=== PATIENT | female | born 1960 | race Caucasian/White ===

== ENCOUNTER 2021-08-27 13:17 | Emergency (ER) | payer BC, SELFPAY ==
[2021-08-27 13:48] VITALS: BP 134/74; PULSE 91; RESP 16; TEMP 36.7; O2SAT 99
--- NOTE | 2021-08-27 15:44 | ED.URI ---
HPI - URI/Sore Throat General Chief Complaint: Upper Respiratory Infection Stated Complaint: Sore Throat Time Seen by Provider: 08/27/21 15:44 Source: patient and RN notes reviewed Mode of arrival: ambulatory Limitations: no limitations History of Present Illness HPI Narrative: 61-year-old female with history of diabetes presents with concern for sore throat, dry cough, nasal congestion and drainage. She reports symptoms started yesterday. She was vaccinated for Covid. She denies any known sick contacts. Reports she is using throat lozenges denies other [id number] intervention. She denies fever, body aches, chills, sweats, shortness of breath,, nausea, vomiting, diarrhea. MD elicited complaint: cough and sore throat Related Data Home Medications Medication Instructions Recorded Confirmed amitriptyline 10 mg PO HS 08/27/21 08/27/21 glipizide 10 mg PO BID 08/27/21 08/27/21 levothyroxine 112 mcg PO DAILY 08/27/21 08/27/21 simvastatin 20 mg PO DAILY 08/27/21 08/27/21 tramadol 50 mg PO Q6H PRN 08/27/21 08/27/21 triamterene-hydrochlorothiazid 1 cap PO DAILY 08/27/21 08/27/21 Allergies Allergy/AdvReac Type Severity Reaction Status Date / Time No Known Allergies Allergy Verified 08/27/21 14:11 Review of Systems Review of Systems: CONSTITUTIONAL: Denies malaise, chills, sweats, or fever. EYES: Denies visual changes, redness, or discharge. ENT: Reports rhinorrhea, congestion, sore throat. Denies sinus pain, otalgia CARDIOVASCULAR: Denies chest pain, palpitations, or edema. RESPIRATORY: Reports cough. Denies dyspnea. GASTROINTESTINAL: Denies abdominal pain, nausea, vomiting, diarrhea SKIN: Denies rash or itching. MUSCULOSKELETAL: Denies myalgia. NEUROLOGIC: Denies headache. All systems reviewed & are unremarkable except as noted in HPI and below PMFSH Comments At time of signature, agree with nursing past medical, surgical, social and family history. There is no relevant family history pertinent to the presenting complaint Exam Narrative: GENERAL: Well-appearing, well-nourished, and in no acute distress. HEAD: Normocephalic EYES: PERRLA, conjunctivae clear ENT: Nares clear. Mucous membranes moist. TM pearly her with sharp light reflex bilaterally; no tragal tenderness. Oropharynx erythematous without lesions. Tonsils not enlarged and without exudate, no drooling, no hoarseness, no trismus, uvula midline. NECK: Supple. No lymphadenopathy CHEST: Clear to auscultation, breath sounds equal. No wheezing, rhonchi, rales, or stridor. No respiratory distress, speaks in full sentences. HEART: Regular rate and rhythm. No murmur heard. SKIN: Warm, dry, no rash. NEURO: Alert and oriented x3. PSYCH: Normal mood and affect Course Course Emergency Course: Patient is aware of diagnosis, understands and agrees to treatment plan. Anticipatory guidance given. Patient agrees to follow-up as directed and is aware of reasons to seek care at the emergency department. Portions of this record may have been created with voice recognition software Vital Signs Vital signs: Vital Signs Temperature 98.1 F 08/27/21 13:48 Pulse Rate 91 08/27/21 13:48 Respiratory Rate 16 08/27/21 13:48 Blood Pressure 134/74 08/27/21 13:48 Pulse Oximetry 99 08/27/21 13:48 Temperature 98.1 F 08/27/21 13:48 Pulse Rate 91 08/27/21 13:48 Respiratory Rate 16 08/27/21 13:48 Blood Pressure 134/74 08/27/21 13:48 Pulse Oximetry 99 08/27/21 13:48 Reviewed. Patient has history of hypertension MDM - URI/Sore Throat MDM Narrative Medical decision making narrative: Differential diagnosis considered: Hardin virus, strep pharyngitis, allergic rhinitis, upper respiratory tract infection, sinusitis, rhinosinusitis, nasopharyngitis. viral pharyngitis, otitis media, otitis externa, pneumonia, bronchitis, viral cough syndrome, viral syndrome, and influenza. Exam findings show no acute concerns or changes; patient is non-toxic appearing and
== END 2021-08-27 16:20 | disposition home or self-care (01) ==
PROVIDERS: Emergency Provider Nurse Practitioner; PCP Internal Medicine Infectious Disease
DX: J06.9 Acute upper respiratory infection, unspecified (principal); Z20.822 Contact with and (suspected) exposure to COVID-19; E78.00 Pure hypercholesterolemia, unspecified; E11.9 Type 2 diabetes mellitus without complications; E89.0 Postprocedural hypothyroidism; F32.A Depression, unspecified; Z85.850 Personal history of malignant neoplasm of thyroid
CPT/HCPCS: 87081; 87426; 87880; 99203; C9803; G0463

== ENCOUNTER 2024-03-25 14:18 | Emergency (ER) | payer MEDICARE, SELFPAY ==
[2024-03-25 14:30] VITALS: BP 112/67; PULSE 110; RESP 20; TEMP 36.4; O2SAT 96
[2024-03-25 14:42] VITALS: BP 112/67; PULSE 110; RESP 20; TEMP 36.4; O2SAT 96
--- NOTE | 2024-03-25 14:44 | ED.SKABFB ---
HPI - Skin/Abscess/Foreign Bdy General Chief complaint: Skin/Abscess/Foreign Body Stated complaint: Skin Sore/Right Thumb Time Seen by Provider: 03/25/24 14:40 Source: patient, RN notes reviewed and old records reviewed Mode of arrival: ambulatory Limitations: no limitations History of Present Illness HPI narrative: 64 year olf female who presents to [facility] care with complaints of soreness with open draining pustular wound to distal right thumb. Patient reports that she stated having concern for infection redness to the distal aspect of her right thumb on Wednesday and on she starting having some oozing from wound then it started yesterday draining white greenish purulent material,Patient reports that she has history of getting little white spots to the end of her finger, handles money at work.Patient reports no known fevers MD complaint: abscess/boil (right distal thumb) Onset (ago): day(s) (4) Severity scale (1-10): 7 Treatments prior to arrival: OTC topical medication and other (bandaids) Related Data Home Medications Medication Instructions Recorded Confirmed amitriptyline 10 mg tablet 10 mg PO HS 08/27/21 03/25/24 simvastatin 20 mg tablet 20 mg PO DAILY 08/27/21 03/25/24 tramadol 50 mg tablet 50 mg PO Q6H PRN Pain (Scale Score 08/27/21 03/25/24 4-6) triamterene 37.5 1 cap PO DAILY 08/27/21 03/25/24 mg-hydrochlorothiazide 25 mg capsule amlodipine 5 mg tablet 5 mg PO DAILY 03/25/24 03/25/24 glimepiride 2 mg tablet See Rx Instructions .Route .COMPLEX 03/25/24 03/25/24 levothyroxine 125 mcg tablet 125 mcg PO DAILY 03/25/24 03/25/24 metformin 500 mg tablet 500 mg PO BID 03/25/24 03/25/24 Allergies Allergy/AdvReac Type Severity Reaction Status Date / Time No Known Allergies Allergy Verified 03/25/24 14:30 Review of Systems Review of Systems: CONSTITUTIONAL: Denies fever, chills, or sweats. CARDIOVASCULAR: Denies chest pain, palpitations, or edema. RESPIRATORY: Denies cough or dyspnea. GASTROINTESTINAL: Denies abdominal pain, nausea, vomiting SKIN: Reports redness and swelling of right thumb with purulent drainage. vesicles, pain to distal right thumb MUSCULOSKELETAL: Denies myalgia. NEUROLOGIC: Denies headache, numbness All systems reviewed & are unremarkable except as noted in HPI and below PMFSH Past Medical History Medical History (Updated 03/27/24 @ 08:35 by Tila Patricia NP) Cancer of thyroid Depression Diabetes Hyperlipidemia Hypertension Hypothyroidism Surgical History Surgical History (Updated 03/27/24 @ 08:28 by Tila Patricia NP) H/O thyroidectomy H/O tubal ligation History of endometrial ablation Hx of appendectomy Hx of cholecystectomy Social History Social History (Updated 03/27/24 @ 08:29 by Tila Patricia NP) Smoking status: Never smoker Alcohol intake: current Alcohol use details: rare social Substance use: never Gender identity (if verbalized by the patient): Female Comments At time of signature, agree with nursing past medical, surgical, social and family history. There is no relevant family history pertinent to the presenting complaint Exam Narrative: GENERAL: Well-appearing, well-nourished, and in no acute distress. HEAD: Normocephalic, atraumatic. EYES: PERRLA and EOMI. ENT: Nares clear, no rhinorrhea or epistaxis. Mucous membranes moist. NECK: Supple. no lymphadenopathy CHEST: Clear to auscultation. No respiratory distress.96% on room air HEART: Regular rate and rhythm. No murmur heard. Normal peripheral pulses. ABDOMEN: Soft, nontender, nondistended, normal active bowel sounds. EXTREMITIES: Normal range of motion. No edema. SKIN: Warm, dry. Erythema, induration, tenderness, warmth with purulent drainage to abscess tip of right distal thumb measures 0,75 cm diameter. site is painful to palpation with some surrounding redness. NEURO: No focal deficits. Alert and oriented x3. Course Course Emergency Course: Patient is
== END 2024-03-25 15:05 | disposition home or self-care (01) ==
PROVIDERS: Emergency Provider Registered Nurse; PCP Internal Medicine Infectious Disease
DX: L02.511 Cutaneous abscess of right hand (principal); E89.0 Postprocedural hypothyroidism; E11.9 Type 2 diabetes mellitus without complications; Z79.84 Long term (current) use of oral hypoglycemic drugs; E78.5 Hyperlipidemia, unspecified; I10 Essential (primary) hypertension; Z85.850 Personal history of malignant neoplasm of thyroid
CPT/HCPCS: 87070; 87075; 87081; 87181; 87205; 99213; G0463

== ENCOUNTER 2025-04-06 13:40 | Emergency (ER) | payer MEDICARE, SELFPAY ==
--- OUTSIDE RECORDS SUMMARY | 2025-04-06 13:44 | XMS_ITS | Encounter Summary ---
Author Organization [facility] Healthcare Address [address] [place] [address] Care Team Providers Care Radio Division Officer Name Role Phone Donald Pate MD Primary Care Provider [phone] Encounter Details Date Type Department Care Team (Late st Contact Info) Description 10/23/2024 Orders Only [facility] [address] [place] [id number] Scanning, Provider Social History Tobacco Use Types Packs/Day Years Used Date Smoking Tobacco: Never Smokeless Tobacco: Never Alcohol Use Standard Drinks/Week Comments No 0 (1 standard drink = 0.6 oz pur e alcohol) PHQ-2 Answer Date Recorded PHQ-2 Total Score 0 05/22/2024 PHQ-9 Answer Date Recorded PHQ-9 Total Score 0 05/22/2024 Personal Safety Answer Date Recorded Have you ever been in or are you currently in a harmful physical or emotional relationship or is someone making you feel afraid or unsafe? Denies 08/16/2024 Comments Unknown Sex and Gender Information Value Date Recorded Sex Assigned at Not on file Legal Sex Female 11:58 PM [employer] Gender Identity Not on file Sexual Orientation Not on file documented as of this encounter Plan of Treatment Not on file documented as of this encounter Procedures Procedure Name Priority Date/Time Associated Diagnosis Comments SCAN - LABS 10/23/2024 documented in this encounter Results * SCAN - LABS (10/23/2024) us Provider Scanning Final Result documented in this encounter Visit Diagnoses Not on filedocumented in this encounter Care Teams Radio Division Officer Relationship Specialty Start Date End Date Donald Pate MD [address] [place] [address] PCP - General 11/27/16 documented as of this encounter
--- OUTSIDE RECORDS SUMMARY | 2025-04-06 13:44 | XMS_ITS | Clinical Summary ---
Author Organization [facility] Address [address] [place] [address] Phone Care Team Providers [employer] Name Role Phone Rio Donald Lee MD Primary Care Provider [phone]- [phone] Allergies No known active allergies Medications amitriptyline (ELAVIL) 10 MG Tablet Take 10 mg by mouth nightly. Active levothyroxine (SYNTHROID) 112 MCG Tablet Take 112 mcg by mouth daily. Active simvastatin (ZOCOR) 20 MG Tablet Take 20 mg by mouth every evening. Active SUMAtriptan (IMITREX) 100 MG Tablet Take 100 mg by mouth daily as needed. Use as directed. May repeat dose in 2 hours if headache recurs. Active sertraline (ZOLOFT) 50 MG Tablet Take 50 mg by mouth daily. Active glimepiride (AMARYL) 2 MG TabletIndicatio ns:Type 2 Diabetes Mellitus Take 2 mg by mouth 2 times daily. Indications: Type 2 Diabetes 2 Active cyclobenzaprine (FLEXERIL) 10 MG Tablet Take 10 mg by mouth nightly. 4 Active triamterene-hyd rochlorothiazid e (MAXZIDE) 37.5-25 MG Tablet Take 1 Tablet by mouth daily. Active baclofen (LIORESAL) 10 MG Tablet Take 1 Tablet by mouth every 12 hours as needed for Muscle spasms. 90 Tablet 5 Active traMADol (ULTRAM) 50 MG TabletIndicatio ns:Pain Take 1 Tablet by mouth every 6 hours as needed for Moderate or more severe pain. Indications: Pain 15 Tablet Active pantoprazole (PROTONIX) 40 MG Tablet Delayed Response Take 40 mg by mouth daily. Active bisacodyl EC (DULCOLAX) 5 MG Tablet Delayed Response Take 5 mg by mouth daily as needed for Constipation - 1st line. Active Acetaminophen 500 MG Capsule Take 1,000 mg by mouth every 4 hours as needed for Mild or more severe pain. Active predniSONE (DELTASONE) 10 MG Tablet Take 10 mg by mouth daily. PT TAKING 5MG DAILY OF 01/16/25 Active Active Problems Problem Noted Date Diagnosed Date Chronic anemia 10/16/2024 Type 2 diabetes mellitus 10/16/2024 Hypothyroidism (acquired) 10/16/2024 History of thyroid cancer 10/16/2024 Primary osteoarthritis involving multiple joints 09/27/2024 Acute anemia 09/26/2024 Iron deficiency anemia due to chronic blood loss 08/01/2024 Colitis 06/15/2024 Sepsis 06/15/2024 Complicated urinary tract infection 06/15/2024 Morbid obesity 06/15/2024 Hyponatremia 06/15/2024 Microcytic anemia 06/15/2024 Diarrhea 06/15/2024 Hypothyroidism 06/15/2024 CKD (chronic kidney disease) stage 3, GFR 30-59 ml/min 11/23/2023 Type 2 diabetes mellitus with hyperglycemia 05/30 Mixed hyperlipidemia 01/13/2014 Overview (09/27/2024): Hyperlipidemia Diabetes mellitus Hypertension Resolved Problems Problem Noted Date Diagnosed Date Resolved Date Orthostatic hypotension 10/16/202409/30 Dehydration 10/16/2024 10/17/2024 Generalized weakness 10/16/2024 025 Acute cystitis 10/02/2024 10/02/2024 Acute blood loss anemia 09/27/2024 02/0 10/2024 Dysphagia 09/27/2024 10/02/2024 Hypokalemia 06/15/2024 10/17/2024 Acute kidney injury superimp osed on stage 3a chronic kidney disease 06/15/2024 10/17/2024 Encounters Date Type Department Care Team Description 02/26/2025 [facility] [address] [address] Radha Ma, EMERGENCY SERVICE WORKER TRANSPORT 01/31/2025 10:00 AM CDT Home Care Visit [address] [address] La Rodriguez, KATLIN SN - OASIS DISCHARGE 01/29/2025 9:30 AM CDT Home Care Visit [address] [address] Areli Barahona, PT PT - DISCIPLINE DISCHARGE 01/26/2025 9:30 AM CDT Home Care Visit [address] [address] Pamela Hammer, STREET LIGHT WIRER PT - HOME VISIT 01/24/2025 9:30 AM CDT Home Care Visit [address] [address] Pamela Hammer, STREET LIGHT WIRER PT - HOME VISIT 01/24/2025 2:00 AM CDT Home Care Visit [address] [address] La Rodriguez, KATLIN SN - HOME VISIT 01/18/2025 9:30 AM CDT Home Care Visit [address] [address] Pamela Hammer, STREET LIGHT WIRER PT - HOME VISIT 01/17/2025 2:30 PM CDT Home Care Visit [address] [address] La Rodriguez, KATLIN SN - HOME VISIT 01/15/2025 10:30 AM CDT Home Care Visit [address] [address] Pamela Hammer, STREET LIGHT WIRER PT - HOME VISIT 01/11/2025 10:30 AM CDT Home Care Visit [address] [address] Pamela Hammer, STREET LIGHT WIRER PT - HOME VISIT 01/09/2025 10:30 AM CDT Home Care Visit [address] [address] La Christiansen OT OT - INITIAL EVALUATION 01/09/2025 10:00 AM CDT Home Care Visit [address] [address] Areli Barahona, PT PT - INITIAL EVALUATION 01/09/2025 Plan of Care Documentation [address] [address] 01/08/2025 11:00 AM CDT Home Care Visit [address] [address] La Rodriguez, RN SN - OASIS START OF CARE from Last 3 Months Immunizations Immunization Administration Dates Next Due Influenza, Trivalent, Adjuvanted, PF 06/16/2024 TDAP Vaccine 09/22/2023,04/23/2018 Social History Tobacco Use Types Packs/Day Years Used Date Smoking Tobacco: Never Smokeless Tobacco: Never Tobacco Cessation:Counseling Given: Not Answered Alcohol Use Standard Drinks/Week Comments No 0 (1 standard drink = 0.6 oz pur e alcohol) [facility] Utilities Answer Date Recorded In the past 12 months has [employer], gas, oil, or water [employer] threatened to shut off services in your home? Patient declined 10/16/2024 Social Connection and Isolation Panel Answer Date Recorded In a typical week, how many times do you talk on the phone with family, friends, or neighbors? Patient declined 10/16/2024 How often do you get togethe r with friends or relatives? Patient declined 10/16/2024 How often do you attend jewish or adventism serv ices? Patient declined 10/16/2024 Do you belong to any clubs o r organizations such as jewish groups, unions, fraternal or athletic groups, or school groups? Patient declined 10/16/2024 How often do you attend meet ings of the clubs or organizations you belong to? Patient declined 10/16/2024 Are you , , di vorced, , never , or living with a partner? Patient declined 10/16/2024 AUDIT-C Answer Date Recorded Q1: How often do you have a drink containing alc ohol? Patient declined 10/16/2024 Q2: How many drinks containi ng alcohol do you have on a typical day when you are drinking? Patient declined 10/16/2024 Q3: How often do you have si x or more drinks on one occasion? Patient declined 10/16/2024 Overall Financial Resource Strain (CARDIA) Answe r Date Recorded How hard is it for you to pa y for the very basics like food, housing, medical care, and heating? Patient declined 10/16/2024 [facility] Occupat ional [facility] - Occupational Stress Questionnaire Answer Date Recorded Do you feel stress - tense, restless, nervous, or anxious, or unable to sleep at night because your mind is troubled all the time - these days? Patient declined 10/16/2024 Exercise Vital Sign Answer Date Recorde d On average, how many days pe r week do you engage in moderate to strenuous exercise (like a brisk walk)? Patient declined On average, how many minutes do you engage in exercise at this level? Patient declined 10/16/2024 Hunger Vital Sign Answer Date Recorded Within the past 12 months, y ou worried that your food would run out before you got the money to buy more. Patient declined Within the past 12 months, t he food you bought just didn't last and you didn't have money to get more. Patient declined PRAPARE - Transportation Answer Date Re corded In the past 12 months, has l ack of transportation kept you from medical appointments or from getting medications? Patient declined 10/16/2024 In the past 12 months, has l ack of transportation kept you from meetings, work, or from getting things needed for daily living? Patient declined 10/16/2024 Housing Stability Vital Sign Answer Patrice e Recorded In the last 12 months, was t here a time when you were not able to pay the mortgage or rent on time? Patient declined 10/16/19 25 In the past 12 months, how m any times have you moved where you were living? 1 10/16/2024 At any time in the past 12 m [facility], were you homeless or living in a chcf (including now)? Patient declined 10/16/2024 Sexually Active Control Partners Comments Not Currently Comments No Sex and Gender Information Value Date Recorded Sex Assigned at Not on file Legal Sex Female 12:10 AM CDT Gender Identity Not on file Sexual Orientation Not on file Last Filed Vital Signs Vital Sign Reading Time Taken Comments Blood Pressure 128/68 01/31/2025 10:14 AM CDT Pulse 87 01/31/2025 10:08 AM CDT Temperature 36.4 C (97.5 F) 01/31/2025 10:08 AM CDT Respiratory Rate 16 01/31/2025 10:08 AM CDT Oxygen Saturation 98% 01/31/2025 10:08 AM CDT Inhaled Oxygen Concentration - - Weight 98 kg (216 lb) 01/31/2025 10:08 AM CDT Height 157.5 cm (5' 2) 01/31/2025 10:08 AM CDT Body Mass Index 39.51 01/31/2025 10:08 AM CDT Plan of Treatment Upcoming Encounters Date Type Department Care Team (Late st Contact Info) Description 04/10/2025 3:00 PM CDT [facility] Visit [facility] [address] [place] [address] Kimber Mojica APRN, MARKET RESEARCH SPECIALIST [address] [place] [address] Health Maintenance Due Date Last Done Comments DEXA Bone Density 1959 Diabetes: Eye Exam 1959 Diabetes: Foot Exam 1959 Hepatitis C Virus (HCV) Screening 1959 Pneumococcal Immunization (50+ years) (1 of 2 - PCV) 1978 Cologuard 01/29/2004 Zoster Immunization (1 of 2) 2009 SARS-COV-2 Immunization (3 - season) 2024 02/11/2021, 01/15/2021 Mammogram 04/27/2025 04/27/2024, 10/01, 05/27/2017 Influenza Immunization (#1) 04/30/202505/30, 07/09/2023, 06/08/2022, Additional history exists Diabetes: Hemoglobin A1c 07/15/20252 025, 10/16/2024, 09/21/2024, Additional history exists Immunochemical Fecal Occult Blood 10/01/2025 10/01/2024 Diabetes: Nephropathy Screening 10/15/2025 10/15/2024, 09/26/2024, 06/15/2024, Additional history exists Td Immunization Every 10 Years (Adults With 1 Tdap) 09/22/2033 09/22/2023, 04/23/2018, 09/27/2013 Respiratory Syncytial Virus (RSV) Immunization (Adult) (1 - 1-dose 75+ series) 2034 Colonoscopy 08/16/2034 08/16/2024 Colorectal Cancer Screening 08/16/2034 DTaP/Tdap/Td Immunization Discontinued 2023, 04/23/2018, 09/27/2013 Hepatitis B Immunization Aged Out No longer eligible based on patient's age to complete this topic Human Papillomavirus (HPV) Immunization Aged Out No longer eligible based on patient's age to complete this topic Meningococcal Immunization (ACWY) Aged Out No longer eligible based on patient's age to complete this topic Rotavirus Immunization Aged Out No lo nger eligible based on patient's age to complete this topic Procedures Procedure Name Priority Date/Time Associated Diagnosis Comments HEMOGLOBIN A1C W/ ESTIMATED GLUCOSE STAT 10/16/2024 4:54 AM [employer] CMP (COMPREHENSIVE METABOLIC PANEL) STAT 10/15/2024 7:35 PM [employer] STOOL, OCCULT BLOOD, DIAGNOSTIC, VIA GUAIAC Routine 10/01/2024 2:26 PM [employer] from Last 3 Months or Most Recently Relevant to Health Maintenance Results * Hemoglobin A1C w/ Estimated Glucose (10/16/2024 4:54 AM [employer]) HGB-A1C 6.0 4.0 - 6.0 % 10/16/2024 5:31 AM [employer] [facility] Est Average Glucose 125.5 mg/dL 10/16/2024 5:31 AM [employer] [facility] Blood Venipuncture / Unknown 10/16/2024 4:54 AM [employer] 10/16/2024 5:03 AM [employer] Narrative [facility] - 10/16/2024 5:31 AM [employer] HEMOGLOBIN A1C: DIABETIC PATIENTS: WELL-CONTROLLED: 6.2 - 7.0 INTERMEDIATE WELL-CONTROLLED: 7.0 - 9.0 POORLY-CONTROLLED: >9.0 Specimens containing greater than 5% of Hemoglobin F may result in lower than expected % HbA1C results. Paige Morris ENGINE GENERATOR ASSEMBLER, MARKET RESEARCH SPECIALIST CHEMISTRY ORDERABLES Final Result [facility] [address] [place] [address] * (ABNORMAL) CMP (Comprehensive Metabolic Panel) (10/15/2024 7:35 PM [employer]) SODIUM 140 136 - 145 mmol/L 10/15/2024 8:09 PM [facility] POTASSIUM 3.4(L) 3.5 - 5.1 mmol/L 10/15/2024 8:09 PM [facility] CHLORIDE 107 98 - 107 mmol/L 10/15/2024 8:09 PM [facility] CO2, VENOUS 19(L) 22 - 30 mmol/L 10/15/2024 8:09 PM [facility] ANION GAP 17.4 <18.0 mmol/L 10/15/2024 8:09 PM [facility] GLUCOSE 139(H) 70 - 99 mg/dL 10/15/2024 8:09 PM [facility] BUN 51(H) 10 - 20 mg/dL 10/15/2024 8:09 PM [facility] CREATININE, BLOOD 2.38(H) 0.60 - 1.00 mg/dL 10/15/2024 8:09 PM [facility] BUN/CREATININE RATIO 21(H) 12 - 20 ratio 10/15/2024 8:09 PM [facility] TOTAL PROTEIN 7.9 6.0 - 8.0 g/dL 10/15/2024 8:09 PM [facility] ALBUMIN 3.8 3.5 - 5.0 g/dL 10/15/2024 8:09 PM [facility] A/G RATIO 0.9(L) 1.0 - 2.2 10/15/2024 8:09 PM [facility] CALCIUM 10.5 8.7 - 10.5 mg/dL 10/15/2024 8:09 PM [facility] T BILI 0.4 0.2 - 1.2 mg/dL 10/15/2024 8:09 PM [facility] SGOT (AST) 24 6 - 42 U/L 10/15/2024 8:09 PM [facility] SGPT (ALT) 16 6 - 55 U/L 10/15/2024 8:09 PM [facility] ALKALINE PHOSPHATASE 125 40 - 150 U/L 10/15/2024 8:09 PM [facility] GFR, ESTIMATED 22(L) >=60 10/15/2024 8:09 PM [facility] Comment: Creatinine Clearance is the preferred criteria for selecting drug dose adjustments in renally impaired patients. The GFR is provided as additional pertinent clinical information. GFR is reported in mL/min/1.73 sq m. Calculation based on the Chronic Kidney Disease Epidemiology Collaboration (CKD- EPI) equation refit without adjustment for race. GFR, EST. 25(L) >=60 025 8:09 PM [facility] GFR, EST. NONAFRICAN 20(L) >=60 10/15/2024 8:09 PM [facility] Blood Venipuncture / Unknown 10/15/2024 7:35 PM [employer] 10/15/2024 7:44 PM [employer] us Perry Jacobs MD CHEMISTRY ORDERABLES Alisia l Result [facility] [address] [place] [address] * (ABNORMAL) Stool, Occult Blood, Diagnostic, via Guaiac (10/01/2024 2:26 PM [employer]) OCCULT BLOOD DIAG Positive(A ) Negative 10/01/2024 4:43 PM [employer] [facility] Stool STOOL SPECIMEN / Unknown Non-Phlebotomy Collection / Unknown 10/01/2024 2:26 PM [employer] 10/01/2024 2:26 PM [employer] us Kellie Alvarado APRN, MARKET RESEARCH SPECIALIST BODY FLUIDS & STOOLS LAITH MYRICK Final Result [facility] [address] [place] [address] from Last 3 Months or Most Recently Relevant to Health Maintenance Insurance MEDICARE [facility] Advance Directives * Full Code (Latest Code Status on File) Date Activated Date Inactivated Comments 01/10/2025 6:42 AM * Full Code Date Activated Date Inactivated Comments 10/16/2024 12:35 AM 01/10/2025 6:42 AM CPR-Full Tr eatment: FULL ARREST: Attempt Resuscitation/CPR wit intubation and mechanical ventilation. PRE-ARREST: Use entire range of life support measures to stabilize the patient. * Full Code Date Activated Date Inactivated Comments 09/26/2024 2:05 PM 10/16/2024 12:35 AM CPR-Full Tr eatment: FULL ARREST: Attempt Resuscitation/CPR wit intubation and mechanical ventilation. PRE-ARREST: Use entire range of life support measures to stabilize the patient. * Full Code Date Activated Date Inactivated Comments 06/15/2024 1:45 PM 09/26/2024 2:05 PM CPR-Full Tr eatment: FULL ARREST: Attempt Resuscitation/CPR wit intubation and mechanical ventilation. PRE-ARREST: Use entire range of life support measures to stabilize the patient. Healthcare Agents on File Name Relationship Healthcare Agent Relationship Communication Ian Summers Son/Step-Son Healthcare POA Rosio summers Daughter/Step-Daughter [facility] ernate Healthcare POA Care Teams [employer] Relationship Specialty Start Date End Date Donald Pate MD [employer] [id number] PCP - General Internal Medicine 02/04/18
--- OUTSIDE RECORDS SUMMARY | 2025-04-06 13:44 | XMS_ITS | Clinical Summary ---
Author Organization [facility] Address [address] [place] [address] Care Team Providers Care Belt Conveyor Drier Name Role Phone Donald Holden MD Primary Care Provider [phone] Allergies No known active allergies Medications blood glucose diagnostic (TruliaTouch Ultra Test) strip Use to check blood sugar bid 200 strip 2 07/10/20 21 Active pen needle, diabetic 32 gauge x 5/32 needle Use to inject insulin daily e11.65 100 each 3 11/23/19 24 Active potassium chloride ER 20 mEq CR tablet Take 1 tablet (20 mEq total) by mouth daily Active levothyroxine (SYNTHROID) 125 mcg tablet TAKE 1 TABLET(125 MCG) BY MOUTH DAILY 90 tablet 1 09/02/19 25 Active triamterene-hydro CHLOROthiazide 37.5-25 mg per tablet/capsule TAKE 1 TABLET BY MOUTH EVERY DAY 90 tablet 2 09/02/19 25 Active sertraline (ZOLOFT) 50 mg tablet Take 1 tablet (50 mg total) by mouth daily Active diclofenac sodium (VOLTAREN) 1 % gel Apply topically Active acetaminophen (TYLENOL) 500 mg tablet Take 1 tablet (500 mg total) by mouth every 6 (six) hours as needed for pain Active bisacodyL 5 mg tablet Take by mouth Active simvastatin (ZOCOR) 20 mg tablet TAKE 1 TABLET(20 MG) BY MOUTH EVERY NIGHT 90 tablet 01/15/20 25 Active blood-glucose meter kitIndications:Ty pe 2 diabetes mellitus with stage 3b chronic kidney disease, without long-term current use of insulin (HCC) Use to check blood sugar every day DX:E11.22 1 kit 01/17/20 25 Active lancets miscIndications:T ype 2 diabetes mellitus with stage 3b chronic kidney disease, without long-term current use of insulin ([facility]) Use to check blood sugar every day DX:E11.22 100 each 3 01/17/20 25 Active predniSONE (DELTASONE) 5 mg tablet Take 1 tablet (5 mg) by mouth daily 30 tablet 5 01/17/20 25 025 Active traMADoL (ULTRAM) 50 mg tabletIndications :Primary osteoarthritis involving multiple joints Take 1 tablet (50 mg total) by mouth 2 (two) times a day as needed for pain 60 tablet 02/11/[address] (PROTONIX) 40 mg EC tabletIndications :Upper GI bleed Take 1 tablet (40 mg total) by mouth daily 90 tablet 1 02/13/20 25 Active glimepiride (AMARYL) 2 mg tabletIndications :Type 2 diabetes mellitus with hyperglycemia, without long-term current use of insulin ([facility]) TAKE 1 TABLET(2 MG) BY MOUTH TWICE DAILY 180 tablet 03/29/20 25 Active glimepiride (AMARYL) 2 mg tabletIndications :Type 2 diabetes mellitus with hyperglycemia, without long-term current use of insulin ([facility]) TAKE 1 TABLET(2 MG) BY MOUTH TWICE DAILY 180 tablet 09/02/19 25 025 Discontinued Active Problems Problem Noted Date Diagnosed Date PMR (polymyalgia rheumatica) 11/03/2024 Assessment & Plan (11/03/2024 1:01 PM OFFICE HELPER): WITH SHOULDER AND PELVIC GIRDLE PAIN WITH EXCEPTIONALLY HIGH CRP PREDNSINE 60 MGP OQDAY FOR THREE DAYS/ 40 MG P OQDAY FOR THREE DAYS / 20 MG PO QDAY FOR 3 DAYS THEN 10 MG P OQDAY FOR THREE DAYS Upper GI bleed 10/04/2024 Assessment & Plan (10/11/2024 2:32 PM OFFICE HELPER): STABLE S/P EGD LAST CBC HB WAS 9 Assessment & Plan (10/04/2024 2:38 PM OFFICE HELPER): DUE TO OTC NSAIDS ON PRTONIX 40 MG PO QAM ESOPHAGITIS FUNGAL INFECTION ON NYSTATION PO QID LAST HB AT 8.8 Otalgia of both ears 09/14/2024 Assessment & Plan (09/14/2024 12:30 PM OFFICE HELPER): B/L WEBERS AND RINNES TEST NEG Z PK ASTELIN NASAL SPRAY BID Family history of colon cancer in father 024 History of colonic polyps 08/01/2024 Iron deficiency anemia due to chronic blood loss 08/01/2024 Assessment & Plan (11/03/2024 1:00 PM OFFICE HELPER): Pt is at a rehab facility right now . Last hb was around 8 Colonscopy is on hold at this time Cbc in two week Assessment & Plan (09/26/2024 11:01 AM OFFICE HELPER): HB IS AROUND 7.1 CONSISTENTLY DROPPING COLONSCOPY WQAS NOT DONE IN JUL 2024 DUE TO BOWEL PREP ISSUES REFER TO THE ER TODAY DUE TO LOW BP AND FATIGUE AND A RPT CBC / WITH POSSIBLER EGD AND COLONSCOPY Encounter for screening colonoscopy 08/01/2024 UTI due to Klebsiella species 07/20/2024 Assessment & Plan (07/20/2024 6:49 PM OFFICE HELPER): SECONDARILY TO URINE INCONTINENCE ARRANGE UA C/S TODAY DISCUSSED PEROSNAL HYGIENE WITH THE USE OF BABY WIPES Colitis 07/20/2024 Assessment & Plan (07/20/2024 6:49 PM OFFICE HELPER): WITH MILD ANEMIA AND A NEG CT SCAN ARRANGE CBC TODAY IF ANEMIC WILL REFER FOR COLONSCOPY Rash and nonspecific skin eruption 07/20/2024 Assessment & Plan (07/20/2024 6:48 PM OFFICE HELPER): B/L UNDER BREAST C/W MING DUE TO RECENT EXPOSURE TO ABX TRIAL OF TOPICAL NYSTATIN CREAM BID Functional diarrhea 06/14/2024 Assessment & Plan (06/14/2024 9:52 AM CDT): There are no alarming symptoms like nausea/ votming/ fever or bloody stool Clear liquid diet for 12 hours Ok to do zofran prn Left hip pain 05/23/2024 Assessment & Plan (05/23/2024 6:34 PM CDT): Exam is unremarkable I do not think the pain is from the hip X ray of the left Hip Chronic left-sided low back pain with left-sided sciatica 05/23/2024 Assessment & Plan (06/14/2024 9:53 AM CDT): Ok to use prn tramadol She was asking for a steroid shot today but will defer till diarrhea is better Assessment & Plan (05/23/2024 6:36 PM CDT): I think her symtpoms are actually lower back symptoms Will get an x ray of the L spine and give her kenalog 40 mg IM tines one in the left hip today after verbal consent Paronychia of left thumb 04/05/2024 Assessment & Plan (04/05/2024 4:46 PM CDT): CONDITION IS IMPROVING BUT NOT 100 PERCENT THERE IS STILL SOME SWELLING AND ERYTHEMA WILL CONTINUE KEFLEX VFOR AN ADDITIONAL FIVE DAYS KEEP AREA CLEAN AND DRY Acute non-recurrent pansinusitis 01/18/2024 Assessment & Plan (01/18/2024 4:09 PM CDT): URI symptoms for 4 days, tested negative for COVID and FLU in office today. Frontal and maxillary tenderness with yellow/green sputum blown into tissue in office today. No other acute findings on exam, afebrile, vital stable. Will rx augmentin and flonase as instructed. Push fluids. Work note provided, copy in chart. Call if symptoms do not resolve with augmentin dosing. Degenerative joint disease involving multiple chelle ints 01/18/2024 Assessment & Plan (09/26/2024 11:00 AM OFFICE HELPER): ESPECIALLY OF THE HIP GIRDLE AND B/L SHOULDER PAIN PMR IS SUSPECTED DUE GTO THE SYTMPOMS Assessment & Plan (01/18/2024 4:07 PM CDT): Worsening arthritic symptoms to both hands as described above. Generalized arthritic changes to multiple joint of both hands. No marked weakness or sensory changes. Advised Tylenol and /or aleve as instructed. Bracing may help also. Heat/ice as tolerated. CKD (chronic kidney disease) stage 3, GFR 30-59 ml/min 11/23/2023 Assessment & Plan (09/26/2024 11:00 AM OFFICE HELPER): WITH ASN E GFR UNDER 60 AT THIS TIME AVOID ALL NEPHROTOXIC MEDS Morbid obesity with BMI of 40.0-44.9, adult 05/30 Assessment & Plan (10/17/2024 10:59 AM OFFICE HELPER): With multiple co morbidities including 1. Dm type 2 essential HTN 3. Mixed hyperlipimdeia Dietary counselling today Undergoing PT for mobility and gait balance Assessment & Plan (10/11/2024 2:31 PM OFFICE HELPER): LEVEL 3 OBESITY DIETARY COUNSELLING INCREASE ACTIVITY Assessment & Plan (06/14/2024 9:53 AM CDT): Chronic and stable With co morbidities including high chol/ lower back pain Assessment & Plan (05/23/2024 6:35 PM CDT): Chronic and stable With multiple co morbidities Assessment & Plan (11/23/2023 10:45 AM CDT): This is a chronic condition which is slightly improved 3 lb weight loss since last office visit Encouraged healthy eating and exercise Assessment & Plan (06/15/2023 10:55 AM CDT): This is a chronic condition which continues 3 lb weight loss since last office visit Unable to use GLP wants due to call Encouraged healthy eating and exercise Type 2 diabetes mellitus with hyperglycemia 05/30 Assessment & Plan (11/23/2023 1:42 PM CDT): This is a chronic condition which is poorly controlled, worsening, not at goal of less than 7%. Personally reviewed most recent A1c - Lab Results Component Value Date HGBA1C 8.6 (H) 11/16/2023 Personally reviewed POC blood sugar- not at goal 80-180 Lab Results Component Value Date POCGLU 191 11/23/2023 Medication- continue glimeperide 2 mg 2x daily, stop metformin 500mg bid. Start glargine 22 units daily. Monitor blood sugar 2 times a day. Encouraged annual eye exam. Monofilament foot exam completed. protective senses intact Personally reviewed CMP eGFR- 33 Kidney function- abnormal Urine microalbumin/creatinine ratio - needed. goal <30 not treated with amlodipine, triamterene/hydrochlorothiazide B/P today- at goal of <140/90. continue amlodipine, triamterene/hydrochlorothiazide Personally reviewed lipid panel. Not at Goal of less than 70. Continue simvastatin Assessment & Plan (06/15/2023 10:52 AM CDT): This is a chronic condition which is inadequately controlled, worsening not at goal of less than 7%. Personally reviewed most recent A1c - Lab Results Component Value Date HGBA1C 8.1 06/15/2023 Personally reviewed POC blood sugar- not at goal 80-180 Lab Results Component Value Date POCGLU 198 06/15/2023 Medication- continue glimeperide 2 mg 2x daily. Start metformin 500mg bid. Asked to start 500mg in am and then add 500mg in pm. Repeat cmp at [facility]. As per up to date. Retrieved 06/15/2023 eGFR 30 to 45 mL/minute/1.73 m2: Initiation of therapy: Use generally not recommended (Ref); however, initial therapy with 500 mg once daily with the evening meal titrated to 500 mg twice daily, if tolerated, with close monitoring of kidney function has been recommended by some experts (Ref). Continuation of existing therapy: May continue at a reduced dose up to a maximum of 500 mg twice daily with close monitoring of kidney function (Ref). Monitor blood sugar daily Encouraged annual eye exam. Monofilament foot exam completed. protective senses intact Personally reviewed CMP eGFR- 36 Kidney function-abnormal Urine microalbumin/creatinine ratio - not at goal <30 treated with amlodipine, triamterene/hydrochlorothiazide. Not on Mt or Arb B/P today- not at goal of <140/90. continue amlodipine, triamterene/hydrochlorothiazide. Personally reviewed lipid panel. Not at Goal of less than 70. Continue simvastatin Assessment & Plan (02/12/2023 10:46 AM CDT): This is a chronic condition which is inadequately controlled not at goal of less than 7% with egfr of 33. Elevated BuN and creatinine. Personally reviewed most recent A1c - Lab Results Component Value Date HGBA1C 7.8 02/12/2023 Personally reviewed POC blood sugar- not at goal 80-180 Lab Results Component Value Date POCGLU 198 02/12/2023 Medication- Continue glimeperide 2mg dailly and start levemir 15 units daily. Discussed the effect of kidney failure on taking oral diabetes medications. With the presence of her high deductible co-pay, this limits her choices. Will start low- dose insulin as it is kidney friendly and cost effective. Monitor blood sugar 2 times a day. Encouraged annual eye exam. Monofilament foot exam completed. protective senses intact Personally reviewed CMP eGFR- 33 Kidney function- abnormal Urine microalbumin/creatinine ratio - at goal <30 treated with Triamterene/hydrochlorothiazide, amlodipine B/P today- at goal of <140/90. continue Triamterene/hydrochlorothiazide, amlodipine Personally reviewed lipid panel. Not at Goal of less than 70. Continue simvastatin Assessment & Plan (11/12/2022 7:43 PM CDT): This is a chronic condition which is improving but not at goal of less than 7%. Personally reviewed most recent A1c - Lab Results Component Value Date HGBA1C 7.9 (H) 10/19/2022 Personally reviewed POC blood sugar- not at goal 80-180 Lab Results Component Value Date POCGLU 260 11/12/2022 Medication- Continue glimeperide 2mg twice a day. Discussed adding medication. Not a candidate for metformin due to kidney function. Has high deductible co=pay. Wants to try to lifestyle changes. Monitor blood sugar 2 times a day. EncourageMonofilament foot exam completed, protective senses intact Urine microalbumin/creatinine ratio - at goal <30 not treated with MT/ARB on triameterene/HCTZ and amlodipine Creatinine, ur 20 - 275 mg/dL 163 Microalbumin, ur See Note: mg/dL 2.0 Microalbumin/creat ratio <30 mcg/mg creat 12 Personally reviewed BUN, creatinine, GFR-30 Kidney function- abnormal . stage 3b kidney failure. B/P today- at goal. Goal is <140/90 continue on triameterene/HCTZ and amlodipine Personally reviewed lipid panel. LDL-107 continue simvastatin Not at Goal of less than 70. Type 2 diabetes mellitus wit h stage 3b chronic kidney disease, without long-term current use of insulin 06/15/2022 Assessment & Plan (01/16/2025 5:24 PM CDT): EYE EXAM IS NL FOOT EXAM IS NL CREATININE IS BETTER WITH E GFR ABOVE 40 Assessment & Plan (11/03/2024 12:59 PM OFFICE HELPER): GOAL HBAIC IS UNDER 7 PERCENT EGFR UNDER 60 BUT ABOVE 40 ON TRIAmeterene for water retension Assessment & Plan (10/04/2024 2:38 PM OFFICE HELPER): HOLD METOFRMIN CHECK FS BID GOAL HBAIC IS UNDER 7 PERCENT Assessment & Plan (03/29/2024 6:38 PM CDT): Dilated eye exam is nl Skin assessemnet today Hbaic today She is being followed by endocrinology Assessment & Plan (11/23/2023 1:42 PM CDT): 11/16/23 00:00 SCRIBED eGFR in NonAfrican Moroccan 33 (E) SCRIBED eGFR in 33 (E) Stop metformin. Start lantus 22 units daily. Poor kidney function, refusing insulin. Assessment & Plan (06/15/2023 10:53 AM CDT): High co-pay is deteriorating medical regimen. We tried to add insulin at our last appointment however she says this too was too expensive. Medication- continue glimeperide 2 mg 2x daily. Start metformin 500mg bid. Asked to start 500mg in am and then add 500mg in pm. Repeat cmp at [facility]. As per up to date. Retrieved 06/15/2023 eGFR 30 to 45 mL/minute/1.73 m2: Initiation of therapy: Use generally not recommended (Ref); however, initial therapy with 500 mg once daily with the evening meal titrated to 500 mg twice daily, if tolerated, with close monitoring of kidney function has been recommended by some experts (Ref). Continuation of existing therapy: May continue at a reduced dose up to a maximum of 500 mg twice daily with close monitoring of kidney function (Ref). Assessment & Plan (02/12/2023 10:46 AM CDT): This is a chronic condition which is inadequately controlled not at goal of less than 7% with egfr of 33. Elevated BuN and creatinine. Personally reviewed most recent A1c - Lab Results Component Value Date HGBA1C 7.8 02/12/2023 Personally reviewed POC blood sugar- not at goal 80-180 Lab Results Component Value Date POCGLU 198 02/12/2023 Medication- Continue glimeperide 2mg dailly and start levemir 15 units daily. Discussed the effect of kidney failure on taking oral diabetes medications. With the presence of her high deductible co-pay, this limits her choices. Will start low- dose insulin as it is kidney friendly and cost effective. Monitor blood sugar 2 times a day. Encouraged annual eye exam. Monofilament foot exam completed. protective senses intact Personally reviewed CMP eGFR- 33 Kidney function- abnormal Urine microalbumin/creatinine ratio - at goal <30 treated with Triamterene/hydrochlorothiazide, amlodipine B/P today- at goal of <140/90. continue Triamterene/hydrochlorothiazide, amlodipine Personally reviewed lipid panel. Not at Goal of less than 70. Continue simvastatin Assessment & Plan (11/12/2022 7:43 PM CDT): This is a chronic condition which is improving but not at goal of less than 7%. Personally reviewed most recent A1c - Lab Results Component Value Date HGBA1C 7.9 (H) 10/19/2022 Personally reviewed POC blood sugar- not at goal 80-180 Lab Results Component Value Date POCGLU 260 11/12/2022 Medication- Continue glimeperide 2mg twice a day. Discussed adding medication. Not a candidate for metformin due to kidney function. Has high deductible co=pay. Wants to try to lifestyle changes. Monitor blood sugar 2 times a day. EncourageMonofilament foot exam completed, protective senses intact Urine microalbumin/creatinine ratio - at goal <30 not treated with MT/ARB on triameterene/HCTZ and amlodipine Creatinine, ur 20 - 275 mg/dL 163 Microalbumin, ur See Note: mg/dL 2.0 Microalbumin/creat ratio <30 mcg/mg creat 12 Personally reviewed BUN, creatinine, GFR-30 Kidney function- abnormal . stage 3b kidney failure. B/P today- at goal. Goal is <140/90 continue on triameterene/HCTZ and amlodipine Personally reviewed lipid panel. LDL-107 continue simvastatin Not at Goal of less than 70. Olecranon bursitis of right elbow 03/26/2021 Assessment & Plan (03/26/2021 3:20 PM CDT): Pt was seen in ER yesterday. She was started on bactrim and keflex, and given tramadol for pain. Pt is keeping it elevated at home and she has been icing it. She states that the tramadol doesn't help the pain. It is still both red and swollen today on examination with decreased ROM and tenderness. I will an medrol dose tim to help with inflammation. I have asked her to keep an eye on her blood sugars. Pt states that her BS this am was 102, and she does pay close attention, and will call if they get above 200. She is to be off of work until Wednesdaymarch 30. Routine physical examination 05/25/2017 Acquired hypothyroidism 05/25/2017 Assessment & Plan (03/29/2024 6:38 PM CDT): Tsh is nl Continue synthroid Tsh today Assessment & Plan (06/15/2023 10:55 AM CDT): This is a chronic condition which is not at goal of TSH between 0.3 to 4.2 mclUnits/ml Personally reviewed lab. Lab Results Component Value Date TSH 0.25 (L) 03/08/2023 TSH 1.17 10/19/2022 TSH 2.81 06/08/2022 Continue Levothryoxine 0.125 mcg po daily in am Discussed the importance of taking Levothryoxine on a empty stomach, which means one hour before eating or two hours after eating. Discussed food in the stomach will interfere with absorption of Levothyroxine. Discussed Calcium, antacids and iron supplements will interfere with the absorption of Levothyroxine, encouraged to take these at a different time of the day. Repeat TSH, T4 Migraine without aura, not intractable 7 Essential hypertension 01/13/2014 Overview (12/04/2016): Hypertension Assessment & Plan (06/14/2024 9:53 AM CDT): Goal bp is 130/80 or under Assessment & Plan (03/29/2024 6:37 PM CDT): Goal bp is 130/80 or under Assessment & Plan (01/18/2024 4:07 PM CDT): Chronic, at goal. BP stable in office today on current therapy. No acute findings on exam. Continue Maxide and amlodipine as rxd and low salt diet. Assessment & Plan (04/09/2022 3:52 PM CDT): This is a chronic condition which is at goal. B/P today- at goal. Goal is <140/90 continue on triameterene/HCTZ and amlodipine Mixed hyperlipidemia 01/13/2014 Overview (12/04/2016): Hyperlipidemia Assessment & Plan (11/03/2024 12:59 PM OFFICE HELPER): Flp and ldl is ok Goal ldl is under 100 On zocor 20 mg p oqday Assessment & Plan (03/29/2024 6:37 PM CDT): Flp and ldl are nl Goal ldl is under 100 Assessment & Plan (11/23/2023 10:45 AM CDT): This is a chronic condition which is not at goal of LDL less than 70 Continue simvastatin Encouraged to eat healthy, include fresh fruits and vegetables daily and avoid eating fried foods more than once per week. Encouraged to take medications as prescribed. Assessment & Plan (04/09/2022 3:52 PM CDT): This is a chronic condition which is not at goal. Goal is less than 70. Personally reviewed lipid panel. Continue on simvastatin. Lab Results Component Value Date LDLCALC 135 08/27/2017 Encouraged to eat healthy, include fresh fruits and vegetables daily and avoid eating fried foods more than once per week. Encouraged to take medications as prescribed. Assessment & Plan (03/19/2022 8:33 PM CDT): This is a chronic condition which is not at goal. Goal is less than 70. Personally reviewed lipid panel. Continue on simvastatin. Lab Results Component Value Date LDLCALC 135 08/27/2017 Encouraged to eat healthy, include fresh fruits and vegetables daily and avoid eating fried foods more than once per week. Encouraged to take medications as prescribed. Hyperprolactinemia 01/13/2014 Overview (12/04/2016): Hyperprolactinemia Assessment & Plan (11/03/2024 1:01 PM OFFICE HELPER): With decreased activity Including UE weakness and LE weakness Arrange MRI OF THE HEAD WITHOUT CONTRAST ARRANGE MRI OF THE C SPINE TO R/O CERVICAL RADICULOPATHY Assessment & Plan (02/12/2023 10:40 AM CDT): Latest Reference Range & Units 10/19/22 09:43 Prolactin ng/mL 43.5 (H) (H): Data is abnormally high Possible causes- medication, kidney failure. Latest Reference Range & Units 10/19/22 09:43 BUN 7 - 25 mg/dL 31 (H) Creatinine 0.50 - 1.05 mg/dL 1.72 (H) Glucose 65 - 99 mg/dL 172 (H) Calcium 8.6 - 10.4 mg/dL 9.4 Bilirubin, total 0.2 - 1.2 mg/dL 0.5 Protein, sr 6.1 - 8.1 g/dL 7.2 Albumin 3.6 - 5.1 g/dL 4.2 Estimated Glomerular Filtration Rate > OR = 60 mL/min/1.73m2 33 (L) (H): Data is abnormally high (L): Data is abnormally low 08/27/2017 MRI BRAIN W WO CONTRAST COMPARISON: Brain CT 08/27/2017. FINDINGS: There is no acute intracranial hemorrhage, midline shift or mass effect. There is no focal diffusion restriction to suggest an acute infarct. There are a few small foci of increased signal on T2 and FLAIR involving periventricular and subcortical white matter compatible small vessel microvascular ischemic disease. There is no abnormal brain enhancement. IMPRESSION: 1. NO ACUTE INTRACRANIAL BLEED OR INFARCT. 2. MINOR SMALL VESSEL MICROVASCULAR ISCHEMIC DISEASE. Electronically signed by: Royce Reyes M.D. Repeat prolactin level was ordered however patient did not obtain these labs. Encouraged her to repeat labs. Assessment & Plan (11/12/2022 7:37 PM CDT): Latest Reference Range & Units 10/19/22 09:43 Prolactin ng/mL 43.5 (H) (H): Data is abnormally high Possible causes- medication, kidney failure. Latest Reference Range & Units 10/19/22 09:43 BUN 7 - 25 mg/dL 31 (H) Creatinine 0.50 - 1.05 mg/dL 1.72 (H) Glucose 65 - 99 mg/dL 172 (H) Calcium 8.6 - 10.4 mg/dL 9.4 Bilirubin, total 0.2 - 1.2 mg/dL 0.5 Protein, sr 6.1 - 8.1 g/dL 7.2 Albumin 3.6 - 5.1 g/dL 4.2 Estimated Glomerular Filtration Rate > OR = 60 mL/min/1.73m2 33 (L) (H): Data is abnormally high (L): Data is abnormally low 08/27/2017 MRI BRAIN W WO CONTRAST COMPARISON: Brain CT 08/27/2017. FINDINGS: There is no acute intracranial hemorrhage, midline shift or mass effect. There is no focal diffusion restriction to suggest an acute infarct. There are a few small foci of increased signal on T2 and FLAIR involving periventricular and subcortical white matter compatible small vessel microvascular ischemic disease. There is no abnormal brain enhancement. IMPRESSION: 1. NO ACUTE INTRACRANIAL BLEED OR INFARCT. 2. MINOR SMALL VESSEL MICROVASCULAR ISCHEMIC DISEASE. Electronically signed by: Royce Reyes M.D. Will monitor. Resolved Problems Problem Noted Date Diagnosed Date Resolved Date Type 2 diabetes mellitus wit hout complication, without long-term current use of insulin ([facility]) 01/13/2014 11/12/2022 Overview (12/02/2016): Diet-controlled type 2 diabetes mellitus Assessment & Plan (04/09/2022 3:51 PM CDT): This is a chronic condition which is not at goal. Social deterrents include high copay deductible. Will apply for [employer] patient assistance program. Forms provided [employer] for co pay card. Will try this at pharmacy and notify the office if this does not work. Personally reviewed most recent A1c - Lab Results Component Value Date HGBA1C 8.9 (H) 02/12/2022 goal less than 7% Personally reviewed blood sugar- POC- 183 today Lab Results Component Value Date GLUCOSE 150 (H) 02/12/2022 not at goal 80-180 Medication- Continue glimperide 2mg daily. Start ozempic 0.25mg weekly. Monitor blood sugar 2 times a day. Encouraged annual eye exam. Monofilament foot exam completed, protective senses intact Urine microalbumin/creatinine ratio - Creatinine, ur 20 - 275 mg/dL 163 Microalbumin, ur See Note: mg/dL 2.0 Microalbumin/creat ratio <30 mcg/mg creat 12 at goal <30 not treated with MT/ARB on triameterene/HCTZ and amlodipine Personally reviewed BUN, creatinine, GFR-30 Kidney function- abnormal . Extensive description of stage 3b kidney failure. B/P today- at goal. Goal is <140/90 continue on triameterene/HCTZ and amlodipine Personally reviewed lipid panel. LDL-135 continue simvastatin Not at Goal of less than 70. Assessment & Plan (03/19/2022 8:32 PM CDT): This is a chronic condition which is worsening. not at goal. Personally reviewed most recent A1c - Lab Results Component Value Date HGBA1C 8.9 (H) 02/12/2022 goal less than 7% Personally reviewed blood sugar- Lab Results Component Value Date GLUCOSE 150 (H) 02/12/2022 not at goal 80-180 Medication- Continue glimperide 2mg daily. Start ozempic 0.25mg weekly. Monitor blood sugar 2 times a day. Encouraged annual eye exam. Monofilament foot exam completed, protective senses intact Urine microalbumin/creatinine ratio - Creatinine, ur 20 - 275 mg/dL 163 Microalbumin, ur See Note: mg/dL 2.0 Microalbumin/creat ratio <30 mcg/mg creat 12 at goal <30 not treated with MT/ARB on triameterene/HCTZ and amlodipine Personally reviewed BUN, creatinine, GFR-30 Kidney function- abnormal . Extensive description of stage 3b kidney failure. B/P today- at goal. Goal is <140/90 continue on triameterene/HCTZ and amlodipine Personally reviewed lipid panel. LDL-135 continue simvastatin Not at Goal of less than 70. Encounters Date Type Department Care Team Description 04/05/2025 Telephone [facility] [address] [place] [address] Donald Holden MD 03/27/2025 11:20 AM CDT Lab [facility] [address] [place] [address] Upper GI bleed; Iron deficiency anemia due to chronic blood loss; Diarrhea, unspecified type 03/08/2025 Telephone [facility] [address] [place] [address] Donald Holden MD Lab Results 03/08/2025 Orders Only [address] [address] Donald Holden MD 03/05/2025 2:40 PM CDT Lab [facility] [address] [place] [address] Upper GI bleed; Iron deficiency anemia due to chronic blood loss 03/01/2025 Orders Only [facility] [address] [place] [address] Donald Holden MD Upper GI bleed (Primary Dx) 02/28/2025 Telephone [facility] [address] [place] [address] Donald Holden MD Lab Results 02/28/2025 Results Follow-Up [facility] [address] [place] [address] Donald Holden MD Iron profile w/ IBC, CBC with auto differential, Differential, auto 02/27/2025 12:10 PM CDT Lab [facility] [address] [place] [address] Iron deficiency anemia due to chronic blood loss 02/13/2025 10:30 AM CDT Infusion [address] [place] [address] Iron deficiency anemia due to chronic blood loss (Primary Dx) 02/12/2025 Telephone [facility] [address] [place] [address] Donald Holden MD Med Refill 02/09/2025 10:00 AM CDT Infusion [address] [place] [address] Iron deficiency anemia due to chronic blood loss (Primary Dx) 02/09/2025 Telephone [facility] [address] [place] [address] Donald Holden MD parking placard application 01/30/2025 10:00 AM CDT Infusion [address] [place] [address] Iron deficiency anemia due to chronic blood loss (Primary Dx) 01/17/[address] [place] [address] Donald Holden MD 01/17/2025 Telephone [facility] [address] [place] [address] Elmira Puga RN 01/17/2025 Results [facility]Up [facility] [address] [place] [address] Donald Holden MD Iron profile w/ IBC 01/16/2025 10:10 AM CDT Lab [facility] [address] [place] [address] Iron deficiency anemia due to chronic blood loss 01/16/2025 9:00 AM CDT Office Visit [facility] [address] [place] [address] Donald Holden MD Type 2 diabetes mellitus with stage 3b chronic kidney disease, without long-term current use of insulin (HCC) (Primary Dx); Iron deficiency anemia due to chronic blood loss; Acquired hypothyroidism; Essential hypertension; Mixed hyperlipidemia 01/12/2025 10:10 AM CDT Lab [facility] [address] [place] [address] Pain in both hands; Pain in both upper extremities; Essential hypertension; Mixed hyperlipidemia; Type 2 diabetes mellitus with stage 3b chronic kidney disease, without long-term current use of insulin (HCC); Acquired hypothyroidism; Iron deficiency anemia due to chronic blood loss; Primary osteoarthritis involving multiple joints 01/08/2025 Telephone [facility] [address] [place] [address] Donald Holden MD Med Refill from Last 3 Months Immunizations Immunization Administration Dates Next Due Influenza Virus Vaccine Trivalent Mdv 06/16/2024 Influenza, Quadrivalent, Spl it, Intramuscular 09/30/2016 Influenza, Quadrivalent, Spl it, Preservative Free, Intramuscular 07/09/2023,06/08/2022,06/05/2021 Influenza, Split 09/27/2013,06/15/2012 Influenza, Trivalent, IM (MDV) 5,06/19/2014,09/27/2013,06/15 Influenza, Unspecified 05/23/2024(Deferred: Sandy ent Refused) Tdap 09/22/2023,04/23/2018,09/27/2013 Surgical History Surgery Date Site/Laterality Comments TUBAL LIGATION 1998 Bilateral tubal ligation CHOLECYSTECTOMY 1998 Cholecystectomy APPENDECTOMY 2002 Appendectomy OTHER SURGICAL HISTORY 2012 Cancer, thyroid: Thyroidectomy OTHER SURGICAL HISTORY 1998 Cholelithiasis: Cholecystectomy OTHER SURGICAL HISTORY 2000 Appendicitis: Appendectomy OTHER SURGICAL HISTORY 1999 Sterilization: Bilateral tubal ligation OTHER SURGICAL HISTORY 2006 Menorrhagia: Novasure endometrial ablation OTHER SURGICAL HISTORY 2010 LGSIL, HPV (-) pap smear: biopsies w/changes suggestive of HPV OTHER SURGICAL HISTORY 2009 Knee swelling: arthroscopy OTHER SURGICAL HISTORY 2009 Bladder prolapse: TOT THYROIDECTOMY Thyroidectomy COLONOSCOPY 2015 - 02/26/2015 Medical History Medical History Date Comments Malignant neoplasm of thyroi d gland (HCC) 2012 Cancer, thyroid Cholelithiasis 1998 Cholelithiasis Hx Other Medical 2000 Appendicitis Hx Other Medical 1999 Sterilization; Outcome: successful Hx Other Medical 2006 Menorrhagia Hypertension Hypertension Hyperlipidemia Hyperlipidemia Hx Other Medical 2009 LGSIL, HPV (-) pap smear Hx Other Medical 2009 Knee swelling Hx Other Medical 2009 Bladder prolaps e Hx Other Medical Hypothyroidism, post-surgical Hx Other Medical Diabetes, diet- controlled Hx Other Medical Hyperprolactine nai Tension headache Headache, tensi on Malignant neoplasm of thyroi d gland (HCC) Cancer, thyroid Type 2 diabetes mellitus wit hout complication, without long-term current use of insulin (HCC) 01/13/2014 Diet-controlled type 2 di abetes mellitus Family History Medical History Relation Name Comments Colon cancer Father Cancer -colon; Cause of : Cancer -colon Other Father Cancer, colon & stomach; Cause of : Cancer, colon & stomach Other Mother Alive and well; Headache Other 1 Headaches; Hypertension Other 2 Family history of Hypertension; Stroke Other 3 Family history of Stroke; Heart attack Paternal Grandfather Myocard ial infarction; Hypertension Paternal Grandfather Hyperte nsion; Heart attack Paternal Grandmother Myocard ial infarction; Hypertension Paternal Grandmother Hyperte nsion; Stroke Paternal Grandmother Stroke; Relation Name Status Comments Father (Age 64) Mother Alive Other 1 Other 2 Other 3 Paternal Grandfather Paternal Grandmother Social History Tobacco Use Types Packs/Day Years [...] on file 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 Gender Identity Not on file Sexual Orientation Not on file Obstetrics History Para Term AB IAB SAB Ectopic Multiple Livin g Live Births 1 1 1 Date Outcome GA Total Labor Labor/2nd/3rd Weight Sex Type Anes PTL Elisha A1 A5 Name Clin Term Last Filed Vital Signs Vital Sign Reading Time Taken Comments Blood Pressure 149/72 02/13/2025 10:37 AM CDT Pulse 84 02/13/2025 10:37 AM CDT Temperature 36.6 C (97.9 F) 02/13/2025 10:37 AM CDT Respiratory Rate 16 02/13/2025 10:37 AM CDT Oxygen Saturation 97% 02/13/2025 10:37 AM CDT Inhaled Oxygen Concentration - - Weight 98.1 kg (216 lb 3.2 oz) 01/16/2025 9:02 A M CDT Height 157.5 cm (5' 2) 01/16/2025 9:02 AM CDT Body Mass Index 39.54 01/16/2025 9:02 AM CDT Plan of Treatment Health Maintenance Due Date Last Done Comments Osteoporosis Screening-Bone Density Scan 1959 Pneumococcal vaccine 65+ (1 of 2 - PCV) 1978 Zoster Vaccine (1 of 2) 2009 Dilated Eye Exam 05/29/2023 05/29/2021 Well Visit 65+ 01/29/2024 07/18/2018, 05/25/2017 Covid-19 Vaccine (3 - 2023-2 5 season) 2024 02/11/2021, 01/15/2021 Albumin Creatinine Ratio, Urine 11/22/2024 4, 10/14/2021 Foot Exam 11/22/2024 11/23/2023, 05/30, 02/12/2023, Additional history exists Depression Screening 04/04/2025 04/04/2024, 04/04/2024, 10/19/2022 Fall Risk Assessment 04/04/2025 04/04/2024, 10/19/19 23 Breast Cancer Screening-Mammogram 04/27/2025 04/27/2024, 10/26/2022, 05/27/2017 Influenza Vaccine (#1) 2025 4, 07/09/2023, 06/08/2022, Additional history exists Hemoglobin A1C 07/15/2025 01/12/2025, 08/31, 03/28/2024, Additional history exists Colon Cancer Screening-Colonoscopy 08/16/2025 08/16/2024, 02/08/2015, 02/08/2015, Additional history exists Lipid Panel 01/12/2026 01/12/2025, 08/31, 03/28/2024, Additional history exists eGFR 01/12/2026 01/12/2025, 09/30, 09/21/2024, Additional history exists DTaP/Tdap/Td Vaccine (4 - Td or Tdap) 09/22/2033 09/22/2023, 04/23/2018, 09/27/2013 Cervical Cancer Screening Discontinued 05/25/2017 Colon Cancer Screening-CT Colonography Discontinued 08/16/2024, 02/08/2015, 02/08/2015, Additional history exists Colon Cancer Screening-DNA Stool Discontinued 08/16/2024, 02/08/2015, 02/08/2015, Additional history exists Colon Cancer Screening-FIT Discontinued 08/16, 02/08/2015, 02/08/2015, Additional history exists Colon Cancer Screening-Sigmoidoscopy Discontinued 08/16/2024, 02/08/2015, 02/08/2015, Additional history exists Hepatitis B Screening Completed 09/22/2024 Hepatitis C Screening Completed 09/22/2024 Procedures Procedure Name Priority Date/Time Associated Diagnosis Comments DIFFERENTIAL AUTO Routine 03/27/2025 11:14 AM CDT Upper GI bleed Iron deficiency anemia due to chronic blood loss Diarrhea, unspecified type CBC WITH AUTO DIFFERENTIAL Routine 03/27/2025 11:14 AM CDT Upper GI bleed Iron deficiency anemia due to chronic blood loss Diarrhea, unspecified type IRON PROFILE W/ IBC Routine 03/27/2025 11:14 AM CDT Upper GI bleed Iron deficiency anemia due to chronic blood loss Diarrhea, unspecified type GUAIAC OCCULT BLOOD, FECAL, NOT FOR NEOPLASM SCREENING Routine 03/05/2025 2:37 PM CDT Upper GI bleed Iron deficiency anemia due to chronic blood loss DIFFERENTIAL AUTO Routine 02/27/2025 12:08 PM CDT Iron deficiency anemia due to chronic blood loss CBC WITH AUTO DIFFERENTIAL Routine 02/27/2025 12:08 PM CDT Iron deficiency anemia due to chronic blood loss IRON PROFILE W/ IBC Routine 02/27/2025 12:08 PM CDT Iron deficiency anemia due to chronic blood loss IRON PROFILE W/ IBC Routine 01/16/2025 10:08 AM CDT Iron deficiency anemia due to chronic blood loss EGFR Routine 01/12/2025 10:11 AM CDT Essential hypertension DIFFERENTIAL AUTO Routine 01/12/2025 10:11 AM CDT Iron deficiency anemia due to chronic blood loss CYCLIC CITRUL PEPTIDE ANTIBODY, IGG Routine 01/12/2025 10:11 AM CDT Pain in both hands Pain in both upper extremities RHEUMATOID FACTOR Routine 01/12/2025 10:11 AM CDT Primary osteoarthritis involving multiple joints CBC WITH AUTO DIFFERENTIAL Routine 01/12/2025 10:11 AM CDT Iron deficiency anemia due to chronic blood loss TSH Routine 01/12/2025 10:11 AM CDT Acquired hypothyroidism HEMOGLOBIN A1C Routine 01/12/2025 10:11 AM CDT Type 2 diabetes mellitus with stage 3b chronic kidney disease, without long-term current use of insulin (HCC) LIPID PANEL Routine 01/12/2025 10:11 AM CDT Mixed hyperlipidemia COMPREHENSIVE METABOLIC PANEL Routine 01/12/2025 10:11 AM CDT Essential hypertension URIC ACID Routine 01/12/2025 10:11 AM CDT Pain in both hands Pain in both upper extremities CRP (ACUTE PHASE) Routine 01/12/2025 10:11 AM CDT Pain in both hands Pain in both upper extremities ERYTHROCYTE SEDIMENTATION RATE Routine 01/12/2025 10:11 AM CDT Pain in both hands Pain in both upper extremities HEPATITIS C ANTIBODY Routine 09/22/2024 1:25 PM OFFICE HELPER Need for hepatitis C screening test COLONOSCOPY 08/16/2024 10:38 AM OFFICE HELPER SCREENING MAMMOGRAM BILATERAL W KEVIN Schedule Routine, Read Routine (OP Routine) 04/27/2024 10:07 AM CDT Breast cancer screening by mammogram ALBUMIN CREATININE RATIO, URINE Routine 11/23/2023 11:34 AM CDT Type 2 diabetes mellitus with hyperglycemia, without long-term current use of insulin (HCC) DIABETIC EYE EXAM Routine 05/29/2021 THINPREP COLLECTION SUPERVISOR PAP (IMAGE GUIDED) LIQUID-BASED PREP Routine 05/25/2017 10:56 AM CDT from Last 3 Months or Most Recently Relevant to Health Maintenance Results * Differential, auto (03/27/2025 11:14 AM CDT) Neutrophil abs 5.56 1.50 - 6.50 K/cumm Comment:Testing performed by : [facility], [address] [place] [address]., [id number] Imm gran abs 0.08 0.00 - 0.10 K/cumm CERNER CH Comment:Testing performed by : [facility], [address] [place] [address]., [address] Lymphocyte abs 1.39 0.80 - 3.30 K/cumm CERNER CH Comment:Testing performed by : [facility], [address] [place] [address]., [id number] Monocyte abs 0.58 0.20 - 0.80 K/cumm CERNER CH Comment:Testing performed by : [facility], [address] [place] [address]., 60588 Eosinophil abs 0.12 0.00 - 0.50 K/cumm CERNER CH Comment:Testing performed by : [facility], [address] [place] [address]., [address] Basophil abs 0.07 0.00 - 0.10 K/cumm CERNER CH Comment:Testing performed by : [facility], [address] [place] [address]., [address]07 Neutrophil pct 71.4 % CERNER CH Comment: Interpretive Data Percent cell count reference ranges are not reported, since discordance with absolute values may lead to misinterpretation of CBC data. Current Interpretive Data was last revised on 2017. Testing performed by: [facility], [address] [place] [address]., [address]35 Imm gran pct 1.0 % CERNER CH Comment: Interpretive Data Percent cell count reference ranges are not reported, since discordance with absolute values may lead to misinterpretation of CBC data. Current Interpretive Data was last revised on 2017. Testing performed by: [facility], [address] [place] [address]., [address] Lymphocyte pct 17.8 % CERNER CH Comment: Interpretive Data Percent cell count reference ranges are not reported, since discordance with absolute values may lead to misinterpretation of CBC data. Current Interpretive Data was last revised on 2017. Testing performed by: [address] [address] Monocyte pct 7.4 % CERNER CH Comment: Interpretive Data Percent cell count reference ranges are not reported, since discordance with absolute values may lead to misinterpretation of CBC data. Current Interpretive Data was last revised on 2017. Testing performed by: [facility], [address] [place] [address]., [address] Eosinophil pct 1.5 % [facility] Comment: Interpretive Data Percent cell count reference ranges are not reported, since discordance with absolute values may lead to misinterpretation of CBC data. Current Interpretive Data was last revised on 2017. Testing performed by: [address] [address] Basophil pct 0.9 % [facility] Comment: Interpretive Data Percent cell count reference ranges are not reported, since discordance with absolute values may lead to misinterpretation of CBC data. Current Interpretive Data was last revised on 2017. Testing performed by: [address] [address] Blood 03/27/2025 11:1 4 AM CDT 03/27/2025 5:00 PM CDT Donald Holden MD LAB BLOOD ORDERABLES Final Result [facility] [address] [place] [address] * (ABNORMAL) Iron profile w/ IBC (03/27/2025 11:14 AM CDT) Iron 23(L) 35 - 145 mcg/dl Comment:Testing performed by : [address] [address] TIBC 334 250 - 400 mcg/dL [facility] RAINEY Comment:Testing performed by : [address] [address] Transferrin saturation 7(L) 20 - 50 % [facility] Comment:Testing performed by : [address] [address] Blood 03/27/2025 11:1 4 AM CDT 03/27/2025 5:00 PM CDT Donald Holden MD LAB BLOOD ORDERABLES Final Result [address] [place] [address] * (ABNORMAL) CBC with auto differential (03/27/2025 11:14 AM CDT) WBC 7.80 3.80 - 9.90 K/cumm Comment:Testing performed by : [address], [address] Hgb 9.6(L) 11.9 - 15.5 g/dL CERNER CH Comment:Testing performed by : [address], [address] Hct 33.4(L) 35.6 - 45.5 % CERNER CH Comment:Testing performed by : [address], [address] Plt 251 150 - 400 K/cumm CERNER CH Comment:Testing performed by : [address], [address] MPV 9.6 9.1 - 12.3 fL CERNER CH Comment:Testing performed by : [address], [address] RBC 4.02 3.90 - 5.20 M/cumm CERNER CH Comment:Testing performed by : [address], [address] MCV 83.1 81.3 - 96.4 fL CERNER CH Comment:Testing performed by : [address], [address] MCH 23.9(L) 27.1 - 33.3 pg CERNER CH Comment:Testing performed by : [address], [address] MCHC 28.7(L) 32.3 - 35.7 g/dL CERNER CH Comment:Testing performed by : [address], [address] RDW CV 16.8(H) 11.1 - 14.9 % CERNER CH Comment:Testing performed by : [address], [address] RDW SD 51.3(H) 35.7 - 48.1 fL [facility] Comment:Testing performed by : [facility], [address] [place] [address]., [address]24[address] NRBC abs 0.00 0.00 - 0.01 K/cumm [facility] Comment:Testing performed by : [facility], [address] [place] [address]., [id number] Blood 03/27/2025 11:1 4 AM CDT 03/27/2025 5:00 PM CDT Donald Holden MD LAB BLOOD ORDERABLES Final Result Performing Organization Address [facility] Co de Phone Number [address] [place] [address] * (ABNORMAL) Guaiac occult blood, fecal, not for neoplasm screening (03/05/2025 2:37 PM CDT) Guaiac occult blood, fecal Positive(A ) Negative Comment:Testing performed by : [facility], [address] [place] [address], [id number] Stool 03/05/2025 2:37 PM CDT 03/08/2025 1:59 PM CDT Donald Holden MD LAB BODY FLUIDS AND STOOLS ORDERABLES Final Result Performing Organization Address [facility] Co de Phone Number [address] [place] [address] * Differential, auto (02/27/2025 12:08 PM CDT) Neutrophil abs 4.58 1.50 - 6.50 K/cumm Comment:Testing performed by : [facility], [address] [place] [address]., [address] Imm gran abs 0.05 0.00 - 0.10 K/cumm [facility] Comment:Testing performed by : [address] [address] Lymphocyte abs 1.18 0.80 - 3.30 K/cumm [facility] Comment:Testing performed by : [address] [address] Monocyte abs 0.60 0.20 - 0.80 K/cumm CERNER CH Comment:Testing performed by : [address] [address] Eosinophil abs 0.12 0.00 - 0.50 K/cumm CERNER CH Comment:Testing performed by : [address] [address] Basophil abs 0.06 0.00 - 0.10 K/cumm CERNER CH Comment:Testing performed by : [address] [address] Neutrophil pct 69.5 % CERNER CH Comment: Interpretive Data Percent cell count reference ranges are not reported, since discordance with absolute values may lead to misinterpretation of CBC data. Current Interpretive Data was last revised on 2017. Testing performed by: [address] [address] Imm gran pct 0.8 % CERNER CH Comment: Interpretive Data Percent cell count reference ranges are not reported, since discordance with absolute values may lead to misinterpretation of CBC data. Current Interpretive Data was last revised on 2017. Testing performed by: [address] [address] Lymphocyte pct 17.9 % CERNER CH Comment: Interpretive Data Percent cell count reference ranges are not reported, since discordance with absolute values may lead to misinterpretation of CBC data. Current Interpretive Data was last revised on 2017. Testing performed by: [address] [address] Monocyte pct 9.1 % CERNER CH Comment: Interpretive Data Percent cell count reference ranges are not reported, since discordance with absolute values may lead to misinterpretation of CBC data. Current Interpretive Data was last revised on 2017. Testing performed by: [address] [address] Eosinophil pct 1.8 % CERNER CH Comment: Interpretive Data Percent cell count reference ranges are not reported, since discordance with absolute values may lead to misinterpretation of CBC data. Current Interpretive Data was last revised on 2017. Testing performed by: [facility], [address] [place] [address]., [address] Basophil pct 0.9 % [facility] Comment: Interpretive Data Percent cell count reference ranges are not reported, since discordance with absolute values may lead to misinterpretation of CBC data. Current Interpretive Data was last revised on 2017. Testing performed by: [facility], [address] [place] [address]., [address] Blood 02/27/2025 12:0 8 PM CDT 02/27/2025 8:01 PM CDT Donald Holden MD LAB BLOOD ORDERABLES Final Result Performing Organization Address [facility] Co de Phone Number [facility] [address] [place] [address] * (ABNORMAL) Iron profile w/ IBC (02/27/2025 12:08 PM CDT) Iron 31(L) 35 - 145 mcg/dl Comment:Testing performed by : [facility], [address] [place] [address]., [address]57[address] TIBC 319 250 - 400 mcg/dL [facility] Comment:Testing performed by : [facility], [address] [place] [address]., [address] Transferrin saturation 10(L) 20 - 50 % [facility] Comment:Testing performed by : [facility], [address] [place] [address]., [address] Blood 02/27/2025 12:0 8 PM CDT 02/27/2025 8:01 PM CDT Donald Holden MD LAB BLOOD ORDERABLES Final Result Performing Organization Address [facility] Co de Phone Number [facility] [address] [place] [place] [address] * (ABNORMAL) CBC with auto differential (02/27/2025 12:08 PM CDT) WBC 6.59 3.80 - 9.90 K/cumm Comment:Testing performed by : [address] [address] Hgb 9.7(L) 11.9 - 15.5 g/dL CERNER CH Comment:Testing performed by : [address], [address] Hct 34.5(L) 35.6 - 45.5 % CERNER CH Comment:Testing performed by : [facility], [address] [place] [address], [id number] Plt 274 150 - 400 K/cumm CERNER CH Comment:Testing performed by : [facility], [address] [place] [address], [address] MPV 9.8 9.1 - 12.3 fL CERNER CH Comment:Testing performed by : [address], [address] RBC 4.00 3.90 - 5.20 M/cumm CERNER CH Comment:Testing performed by : [address], [address] MCV 86.3 81.3 - 96.4 fL CERNER CH Comment:Testing performed by : [address], [address] MCH 24.3(L) 27.1 - 33.3 pg CERNER CH Comment:Testing performed by : [address], [address] MCHC 28.1(L) 32.3 - 35.7 g/dL CERNER CH Comment:Testing performed by : [address], [address] RDW CV 19.9(H) 11.1 - 14.9 % CERNER CH Comment:Testing performed by : [address], [address] RDW SD 61.9(H) 35.7 - 48.1 fL CERNER CH Comment:Testing performed by : [address], [address] NRBC abs 0.00 0.00 - 0.01 K/cumm CERNER CH Comment:Testing performed by : [address], [address] Blood 02/27/2025 12:0 8 PM CDT 02/27/2025 8:01 PM CDT Donald Holden MD LAB BLOOD ORDERABLES Final Result SEDA [address] [facility] [place] [address] * (ABNORMAL) Iron profile w/ IBC (01/16/2025 10:08 AM CDT) Iron 23(L) 35 - 145 mcg/dl Comment:Testing performed by : [facility], [address] [place] [address]., [address] TIBC 357 250 - 400 mcg/dL SEDA Comment:Testing performed by : [facility], [address] [place] [address], [address] Transferrin saturation 6(L) 20 - 50 % SEDA Comment:Testing performed by : [facility], [address] [place] [address]., [address] Blood 01/16/2025 10:0 8 AM CDT 01/16/2025 4:32 PM CDT Donald Holden MD LAB BLOOD ORDERABLES Final Result [facility] [address] [address] [place] [address] * (ABNORMAL) eGFR (01/12/2025 10:11 AM CDT) eGFR 32(L) >=60 mL/min/1. 73 m2 Comment: Interpretive Data Reference Interval Normal >/= 90 mL/min/1.73m2 Mildly decreased* 60 - 89 mL/min/1.73m2 Mildly to moderately decreased 45 - 59 mL/min/1.73m2 Moderately to severely decreased 30 - 44 mL/min/1.73m2 Severely decreased 15 - 29 mL/min/1.73m2 Kidney Failure < 15 mL/min/1.73m2 *Relative to young adult level Estimated glomerular filtration rate is determined by the 2020 CKD-EPI equation recommended by the National Kidney Foundation (A Unifying Approach to GFR Estimation: Recommendations of the NKF-ASK Task Force on Reassessing the Inclusion of Race in Diagnosing Kidney Disease, JASN 202). The CKD-EPI equation should not be used for patients with unstable renal function and has not been validated in children and those over 70. Current interpretive data was last reviewed 2021. Testing performed by: [facility], [address] [place] [address]., [address] Blood 01/12/2025 10:1 1 AM CDT 01/12/2025 6:21 PM CDT us Donald Holden MD LAB BLOOD ORDERABLES Final Result [address] [place] [address] * Differential, auto (01/12/2025 10:11 AM CDT) Neutrophil abs 5.05 1.50 - 6.50 K/cumm Comment:Testing performed by : [address] [address] Imm gran abs 0.06 0.00 - 0.10 K/cumm [facility] Comment:Testing performed by : [address] [address] Lymphocyte abs 1.58 0.80 - 3.30 K/cumm [facility] Comment:Testing performed by : [address] [address] Monocyte abs 0.54 0.20 - 0.80 K/cumm [facility] Comment:Testing performed by : [address] [address] Eosinophil abs 0.14 0.00 - 0.50 K/cumm [facility] Comment:Testing performed by : [address] [address] Basophil abs 0.08 0.00 - 0.10 K/cumm [facility] Comment:Testing performed by : [address] [address] Neutrophil pct 67.8 % [facility] Comment: Interpretive Data Percent cell count reference ranges are not reported, since discordance with absolute values may lead to misinterpretation of CBC data. Current Interpretive Data was last revised on 2017. Testing performed by: [facility], [address] [place] [address]., [address] Imm gran pct 0.8 % CERNER Comment: Interpretive Data Percent cell count reference ranges are not reported, since discordance with absolute values may lead to misinterpretation of CBC data. Current Interpretive Data was last revised on 2017. Testing performed by: [address] [address] Lymphocyte pct 21.2 % CERNER Comment: Interpretive Data Percent cell count reference ranges are not reported, since discordance with absolute values may lead to misinterpretation of CBC data. Current Interpretive Data was last revised on 2017. Testing performed by: [address] [address] Monocyte pct 7.2 % CERNER Comment: Interpretive Data Percent cell count reference ranges are not reported, since discordance with absolute values may lead to misinterpretation of CBC data. Current Interpretive Data was last revised on 2017. Testing performed by: [facility], [address] [place] [address]., [address] Eosinophil pct 1.9 % CERNER Comment: Interpretive Data Percent cell count reference ranges are not reported, since discordance with absolute values may lead to misinterpretation of CBC data. Current Interpretive Data was last revised on 2017. Testing performed by: [address] [address] Basophil pct 1.1 % CERNER Comment: Interpretive Data Percent cell count reference ranges are not reported, since discordance with absolute values may lead to misinterpretation of CBC data. Current Interpretive Data was last revised on 2017. Testing performed by: [address] [address] Blood 01/12/2025 10:1 1 AM CDT 01/12/2025 6:06 PM CDT us Donald Holden MD LAB BLOOD ORDERABLES Final Result [facility] [address] [place] [address] * (ABNORMAL) CBC with auto differential (01/12/2025 10:11 AM CDT) [facility] Signature WBC 7.45 3.80 - 9.90 K/cumm Comment:Testing performed by : [address], [address] Hgb 8.5(L) 11.9 - 15.5 g/dL [facility] Comment:Testing performed by : [address], [address] Hct 29.8(L) 35.6 - 45.5 % [facility] Comment:Testing performed by : [address], [address] Plt 338 150 - 400 K/cumm [facility] Comment:Testing performed by : [address], [address] MPV 9.5 9.1 - 12.3 fL [facility] Comment:Testing performed by : [address], [address] RBC 3.85(L) 3.90 - 5.20 M/cumm [facility] Comment:Testing performed by : [address], [address] MCV 77.4(L) 81.3 - 96.4 fL [facility] Comment:Testing performed by : [address], [address] MCH 22.1(L) 27.1 - 33.3 pg [facility] Comment:Testing performed by : [address], [address] MCHC 28.5(L) 32.3 - 35.7 g/dL [facility] Comment:Testing performed by : [address], [address] RDW CV 15.8(H) 11.1 - 14.9 % [facility] Comment:Testing performed by : [address], [address] RDW SD 44.4 35.7 - 48.1 fL [facility] Comment:Testing performed by : [address], [address] NRBC abs 0.00 0.00 - 0.01 K/cumm SEDA Comment:Testing performed by : [facility], [address] [place] [address]., [address] Blood 01/12/2025 10:1 1 AM CDT 01/12/2025 6:06 PM CDT Donald Holden MD LAB BLOOD ORDERABLES Final Result Performing Organization Address [facility] Co de Phone Number [facility] [address] [facility] [place] [address] * Cyclic citrul peptide antibody, IgG (01/12/2025 10:11 AM CDT) CCP Ab <0.5 <=2.9 units/mL Comment: Interpretive data Negative: <3 units/mL Positive: > or equal to 3 units/mL Current interpretive data was last revised on 2016. Testing performed by: [facility], [address] [place] [address]., [address] Blood 01/12/2025 10:1 1 AM CDT 01/12/2025 8:29 PM CDT Donald Holden MD LAB BLOOD ORDERABLES Final Result Performing Organization Address [facility] Co de Phone Number [facility] [phone] [facility] Department [place] [address] * (ABNORMAL) Erythrocyte sedimentation rate (01/12/2025 10:11 AM CDT) Erythrocyte sedimentation rate 61(H) 1 - 30 mm/hr Comment:Testing performed by : [facility], [place], [address] Blood 01/12/2025 10:1 1 AM CDT 01/12/2025 6:06 PM CDT Donald Holden MD LAB BLOOD ORDERABLES Final Result Performing Organization Address City/[facility]/ZIP Co de Phone Number SEDA [address] [place] [address] * Rheumatoid factor (01/12/2025 10:11 AM CDT) Rheumatoid factor, quant <10 <=15 IUnits/mL Comment:Testing performed by : [facility], [address] [place] [address]., [address] Blood 01/12/2025 10:1 1 AM CDT 01/12/2025 6:06 PM CDT Donald Holden MD LAB BLOOD ORDERABLES Final Result Performing Organization Address [facility] Co de Phone Number SEDA [address] [place] [address] * (ABNORMAL) CRP (acute phase) (01/12/2025 10:11 AM CDT) Pathologist [facility] [place] CRP 23.6(H) <=10.0 mg/L Comment:Testing performed by : [facility], [address] [place] [address]., [address] Blood 01/12/2025 10:1 1 AM CDT 01/12/2025 6:06 PM CDT Doanld Holden MD LAB BLOOD ORDERABLES Final Result Performing Organization Address [facility] Co de Phone Number SEDA [address] [place] [address] * (ABNORMAL) Uric acid (01/12/2025 10:11 AM CDT) Uric acid 10.9(H) 2.5 - 7.0 mg/dL Comment:Testing performed by : [address] [address] Blood 01/12/2025 10:1 1 AM CDT 01/12/2025 6:06 PM CDT us Donald Holden MD LAB BLOOD ORDERABLES Final Result Performing Organization Address [facility] Co de Phone Number [facility] [phone] [address] [facility] [place] [address] * (ABNORMAL) TSH (01/12/2025 10:11 AM CDT) Thyroid Stimulating Hormone 10.80(H) 0.30 - 4.20 mcIUnit/mL Comment:Testing performed by : [address] [address] Blood 01/12/2025 10:1 1 AM CDT 01/12/2025 6:06 PM CDT Donald Holden MD LAB BLOOD ORDERABLES Final Result Performing Organization Address [facility] de Phone Number [facility] [address] [address] [facility] [place] [address] * (ABNORMAL) Hemoglobin A1c (01/12/2025 10:11 AM CDT) Hgb A1C 6.7(H) 4.0 - 5.6 % Comment:Testing performed by : [address] [address] Estimated Average Glucose 146 mg/dL [facility] Comment: The ADA recommends reporting an estimated Average Glucose (eAG) with all Hemoglobin A1c results using the equation derived from a study of 507 normal and diabetic adults. Minority populations were underrepresented and children were not included. (Diabetes Care 31:7786-2041, 2008). The eAG is not equivalent to a fasting glucose. Testing performed by: [address] [address] Blood 01/12/2025 10:1 1 AM CDT 01/12/2025 6:06 PM CDT Donald Holden MD LAB BLOOD ORDERABLES Final Result Performing Organization Address [facility] Co de Phone Number [facility] [phone] [address] [place] [address] * (ABNORMAL) Lipid panel (01/12/2025 10:11 AM CDT) Cholesterol 172 30 - 199 mg/dL Comment: Interpretive Data Ages < or = 19 years Acceptable: <170 mg/dL Borderline high: 170-199 mg/dL High: >or= 200 mg/dL Ages > or = 20 years Desirable: <200 mg/dL Borderline high: 200-239 mg/dL High: >or= 240 mg/dL Literature References: 1. Expert Panel on Integrated Guidelines for Cardiovascular Health and Risk Reduction in Children and Adolescents. Pediatrics 2011;128:S213 2. NCEP Expert Panel. Circulation 2004;110:227 Current Interpretive Data was last revised on 2018. Testing performed by: [address] [address] Triglycerides 166(H) <=149 mg/dL [facility]A Comment: Interpretive Data Ages < or = 9 years Acceptable: <75 mg/dL Borderline high: 75-99 mg/dL High: >or= 100 mg/dL Ages 10 to 20 years Acceptable: <90 mg/dL Borderline high: 90-129 mg/dL High: >or= 130 mg/dL Ages > or = 20 years Desirable: <150 mg/dL Borderline high: 150-199 mg/dL High: 200-499 mg/dL Very high: >or= 499 mg/dL Literature References: 1. Expert Panel on Integrated Guidelines for Cardiovascular Health and Risk Reduction in Children and Adolescents. Pediatrics 2011;128:S213 2. NCEP Expert Panel. Circulation 2003;110:227 Current Interpretive Data was last revised on 2018. Testing performed by: [facility], [address] [place] [address]., [address] HDL 45 >=40 mg/dL [facility] Comment: Interpretive Data Ages < or = 19 years Acceptable: >45 mg/dL Borderline low: 40-45 mg/dL Low: <40 mg/dL Ages > or = 20 years Desirable: >or= 60 mg/dL Low: <40 mg/dL Literature References: 1. Expert Panel on Integrated Guidelines for Cardiovascular Health and Risk Reduction in Children and Adolescents. Pediatrics 2011;128:S213 2. NCEP Expert Panel. Circulation 2004;110:227 Current Interpretive Data was last revised on 2018. Testing performed by: [facility], [address] [place] [address]., [address] LDL, calculated 98 <=129 mg/dL SEDA RAINEY Comment: Interpretive Data Ages < or = 19 years Acceptable: <110 mg/dL Borderline high: 110-129 mg/dL High: >or= 130 mg/dL Ages > or = 20 years Optimal: <100 mg/dL Near optimal: 100-129 mg/dL Borderline high: 130-159 mg/dL High: >160 mg/dL Calculated using the Jose LDL-C estimating equation. This equation was implemented on 2024. Prior to this date LDL-C was estimated using the Friedewald equation. Literature References: 1. Expert Panel on Integrated Guidelines for Cardiovascular Health and Risk Reduction in Children and Adolescents. Pediatrics 2011;128:S213 2. NCEP Expert Panel. Circulation 2004;110:227 3. Jose Carlson et al. ZAN Cardiol. 2019December 28;5(5):540-548. doi: 10.1001/[email or web address].2020.0013 Current Interpretive Data was last revised on 2024. Testing performed by: [address] [address] Non-HDL Cholesterol 127 mg/dL [facility]A Comment: Interpretive Data Ages < or = 19 years Acceptable: <120 mg/dL Borderline high: 120-144 mg/dL High: >145 mg/dL Ages > or = 20 years When triglycerides are >200 mg/dL, Non-HDL cholesterol is a secondary target of therapy with treatment goals that are 30 mg/dL greater than the LDL cholesterol target. Literature References: 1. Expert Panel on Integrated Guidelines for Cardiovascular Health and Risk Reduction in Children and Adolescents. Pediatrics 2011;128:S213 2. NCEP Expert Panel. Circulation 2004;110:227 Current Interpretive Data was last revised on 2018. Testing performed by: [address] [address] Chol/HDL ratio 4 [facility]A Comment:Testing performed by : [address] [address] Blood 01/12/2025 10:1 1 AM CDT 01/12/2025 6:06 PM CDT Donald Holden MD LAB BLOOD ORDERABLES Final Result [address] [place] [address] * (ABNORMAL) Comprehensive metabolic panel (01/12/2025 10:11 AM CDT) Sodium 140 135 - 145 mmol/L Comment:Testing performed by : [address] [address] Potassium, pl 3.6 3.3 - 4.9 mmol/L [facility] Comment:Testing performed by : [address] [address] Chloride 103 97 - 110 mmol/L [facility] Comment:Testing performed by : [address] [address] CO2 22 22 - 32 mmol/L [facility] Comment:Testing performed by : [address] [address] Anion gap 15 2 - 15 mmol/L [facility] Comment:Testing performed by : [address] [address] BUN 32(H) 6 - 25 mg/dL [facility] Comment:Testing performed by : [address] [address] Creatinine 1.77(H) 0.60 - 1.10 mg/dL [facility] Comment:Testing performed by : [address] [address] Glucose 117 70 - 199 mg/dL [facility] Comment: Interpretive Data Fasting glucose >/= 126 mg/dl is diagnostic for diabetes. Fasting is defined as no caloric intake for at least 8 hours. Fasting glucose between 100 mg/dl to 125 mg/dl is diagnostic of prediabetes. In a patient with classic symptoms of hyperglycemia or hyperglycemic crisis, a random glucose >/= 200 mg/dl is diagnostic for diabetes. In the absence of unequivocal hyperglycemia, results should be confirmed by repeat testing. The classification and Diagnosis of Diabetes Diabetes Care 2021; 46: S19-S40. Current interpretive data was last revised 2022. Testing performed by: [facility], [address] [place] [address]., [address] Calcium 9.3 8.5 - 10.3 mg/dL [facility] Comment:Testing performed by : [address] [address] Bilirubin, total 0.3 0.1 - 1.2 mg/dL [facility] Comment:Testing performed by : [address], [address] Protein, pl 7.1 6.5 - 8.5 g/dL [facility] Comment:Testing performed by : [address], [address] Albumin 4.2 3.5 - 5.0 g/dL [facility] Comment:Testing performed by : [address], [address] Alk phos 90 40 - 130 Units/L [facility] Comment:Testing performed by : [address], [address] ALT 9 7 - 45 Units/L [facility] Comment:Testing performed by : [address], [address] AST 19 10 - 45 Units/L [facility] Comment:Testing performed by : [address], [address] Blood 01/12/2025 10:1 1 AM CDT 01/12/2025 6:06 PM CDT Donald Holden MD LAB BLOOD ORDERABLES Final Result [address] [place] [address] * Hepatitis C antibody Blood (09/22/2024 1:25 PM OFFICE HELPER) Hep C Ab Nonreactive Nonreactive Comment: Interpretive Data Nonreactive: Antibodies to HCV not detected. Does NOT exclude the possibility of recent exposure to HCV. Equivocal: Equivocal for HCV antibodies. Supplemental molecular testing will be automatically performed to determine infection status in accordance with current CDC screening recommendations. Reactive: Positive for HCV antibodies. This may represent current or past HCV infection. Supplemental molecular testing will be automatically performed to determine current infection status in accordance with current CDC screening recommendations. Interpretive data was last revised on 2019. Testing performed by: [facility], [address] [place] [address], [place]., [address] Blood 09/22/2024 1:25 PM OFFICE HELPER 09/22/2024 8:42 PM OFFICE HELPER Donald Holden MD LAB MICROBIOLOGY - GENERAL ORDERABLES Final Result [facility] [address] [facility] [place] [address] * Colonoscopy (08/16/2024 10:38 AM OFFICE HELPER) Anatomical Region Laterality Modality Other Narrative Procedure Note Bacilio Ferraro MD - 08/16/2024 10:38 AM CST [facility] Patient Name: Paula Montesinos Procedure Date: 08/16/2024 10:38AM Date of : 1960 Admit Type: Outpatient Age: 64 Gender: Female Attending MD: Bacilio Ferraro M.D. [facility] 1 Note Status: Finalized Patient Profile: This is a 64 year old female. Father had coloncancer. History of benign polyps in 2014 Procedure: Colonoscopy Indications: Screening in patient at increased risk: Familyhistory of 1st-degree relative with colorectal cancer, High risk colon cancer surveillance: Personal history of colonic polyps, Last colonoscopy: January 2015 Referring MD: Donald Holden M.D. Providers: Bacilio Ferraro M.D. Impression: - The entire examined colon is normal. - Internal hemorrhoids. - No specimens collected. Recommendation: - Repeat colonoscopy in 1 year because the bowel preparation was poor with 2 days colonpreparation. Medicines: Monitored Anesthesia Care Complications: No immediate complications. Estimated Blood Loss: Estimated blood loss: none. Procedure: Pre-Anesthesia Assessment: - Prior to the procedure, a History and Physicalwas performed, and patient medications and allergieswere reviewed. The patient's tolerance of previous anesthesia was also reviewed. The risks andbenefits of the procedure and the sedation options and risks were discussed with the patient. All questions were answered, and informed consent was obtained. Prior Anticoagulants: The patient has taken noanticoagulant or antiplatelet agents. ASA Grade Assessment: III -A patient with severe systemic disease. Afterreviewing the risks and benefits, the patient was deemed in satisfactory condition to undergo the procedure. The benefits, risks and alternatives of theprocedure and sedation were discussed and informed consentwas obtained. All questions were answered. Please referto the signed informed consent document in the medical record. The bowel preparation used was Miralax and bisacodyl tablets via split dose instruction. The scope was passed under direct vision. The Pediatric Colonoscope [id number]-H190L [id number] was introducedthrough the anus and advanced to the the ileocecal valve.The quality of the bowel preparation was inadequate.Bowel prep was administered using a split dose. Findings: The perianal and digital rectal examinations were normal. The colon (entire examined portion) appeared normal. Colonpreparation was inadequate and visualization was admitted by thick liquidstool. Internal hemorrhoids were found during retroflexion. The hemorrhoids were small. Electronically signed by Bacilio Ferraro M.D. Bacilio Ferraro M.D. 08/16/2024 12:53:27 PM Number of Addenda: 0 Note Initiated On: 08/16/2024 10:38 AM Procedure Code(s): --- Professional --- G0105, Colorectal cancer screening; colonoscopy on individual at high risk Diagnosis Code(s): --- Professional --- Z80.0, Family history of malignant neoplasm of digestive organs Z86.010, Personal history of colonic polyps K64.8, Other hemorrhoids CPT copyright 2020 [employer]. All rights reserved. The codes documented in this report are preliminary and upon chemical production machine operator reviewmay be revised to meet current compliance requirements. Recognized by the [employer] for promoting quality in endoscopy Bacilio Ferraro MD ENDOSCOPY PROCEDURES Final Result * Screening Mammogram Bilateral W Kevin (04/27/2024 10:07 AM CDT) Anatomical Region Laterality Modality Breast Bilateral Mammography 04/27/2024 8:26 PM CDT Impressions 04/27/2024 8:26 PM CDT There is no mammographic evidence of malignancy. A 1 year screening mammogram is recommended. BI-RADS: 2 - Benign. The patient has been or will be contacted. The patient will be entered into a reminder system with a target due date of 1 year for her next mammogram. Electronically signed by: Jen Meyer M.D. Narrative 04/27/2024 8:26 PM CDT EXAMINATION: SCREENING MAMMOGRAM BILATERAL W KEVIN ORDERING HEALTHCARE PROVIDER: DONALD HOLDEN HISTORY: Routine screening mammography. COMPARISON: 10/26/2022, 05/27/2017, 05/27/2015 TECHNIQUE: CC and MLO views of the bilateral breasts were obtained with digital technique using breast tomosynthesis with C view. Computer aided detection was utilized. FINDINGS: DENSITY: There are scattered fibroglandular elements in the bilateral breasts. BREASTS: There are stable calcifications in both breasts. There are no suspicious masses, suspicious calcifications, or other suspicious findings in either breast. There has been no suspicious interval change. Donald Holden MD IMG MAMMO PROCEDURES Final Result * Albumin Creatinine Ratio, Urine (11/23/2023 11:34 AM CDT) Creatinine, ur 217 20 - 275 mg/dL [facility] Microalbumin, ur 2.1 See Note: mg/dL [facility] Comment: Reference Range: Reference Range Not established Microalbumin/creat ratio 10 <30 mg/g creat [facility] Comment: The ADA defines abnormalities in albumin excretion as follows: Albuminuria Category Result (mg/g creatinine) Normal to Mildly increased <30 Moderately increased 30-299 Severely increased > OR = 300 The ADA recommends that at least two of three specimens collected within a 3-6 month period be abnormal before considering a patient to be within a diagnostic category. Urine 11/23/2023 11:3 4 AM CDT 11/23/2023 11:35 AM CDT Minnie Carbajal NP LAB URINE ORDERABLES Final Resu lt [facility] [address] [place] [address] * Diabetic Eye Exam (05/29/2021) Historical Provider HEALTH MAINTENANCE Final Result * ThinPrep Gynecologic Pap Test (Image-guided), Liquid-based Preparation (05/25/2017 10:56 AM CDT) Report status CANCELED [facility] Comment:Result canceled by chai jorge ancillary Clinical information [facility] Comment:Information not prov ided LMP NONE GIVEN [facility] Previous Pap NONE GIVEN [facility] Prev. Bx NONE GIVEN [facility] Source [facility] Comment:Cervix, Endocervix Pap, specimen adequacy [facility] Comment: Satisfactory for evaluation. Endocervical/transformation zone component present. Age and/or menstrual status not provided Pap, general categorization CANCELED [facility] Comment:Result canceled by t he ancillary HPV interp [facility] [facility] [place] Comment:Negative for intraep ithelial lesion or malignancy. Infection: [facility] [place] Comment:Result canceled by t he ancillary COMMENTS [facility] [place] Comment: This Pap test has been evaluated with computer assisted technology. Tar Chaser [facility] - Comment: MMW, CT(ASCP) CT screening location: [place] [address] Administration MICHELE Castañeda [address] Review pickle water pump operator [facility] [place] Comment:Result canceled by t he ancillary Pathologist [facility] [place] Comment:Result canceled by t he ancillary 05/25/2017 10:5 6 AM CDT 05/26/2017 6:00 AM CDT Narrative Resulting Agency Comment Performing Organization Information: Site ID: Name: [facility] Address: [facility] [place] [address] Director: Sir[facility] Forrester [facility] LAB PATHOLOGY ORDERABLES F inal Result [facility] - [place] from Last 3 Months or Most Recently Relevant to Health Maintenance Insurance [facility] BL CHOICE PRF PPO [place] MEDICARE [facility] MEDICARE SUPPLEMENT Advance Directives For more information, please contact: [phone] * Full Code (Latest Code Status on File) Date Activated Date Inactivated Comments 08/16/2024 10:05 AM 08/16/2024 5:36 PM * Full Code Date Activated Date Inactivated Comments 08/16/2024 10:04 AM 08/16/2024 10:05 AM * Full Code Date Activated Date Inactivated Comments 08/28/2017 3:25 AM 08/29/2017 4:50 PM * Full Code Date Activated Date Inactivated Comments 08/27/2017 1:30 PM 08/28/2017 3:25 AM Care Teams Belt Conveyor Drier Relationship Specialty Start Date End Date Donald Holden MD [address] [place] [address] PCP - General 11/27/16
--- OUTSIDE RECORDS SUMMARY | 2025-04-06 13:44 | XMS_ITS | Encounter Summary ---
Author Organization [facility] Address [address] [place] [address] Phone Care Team Providers Care Clinical Asst Name Role Phone Donald Pate MD Primary Care Provider +1- [phone] Encounter Details Date Type Department Care Team (Late st Contact Info) Description 10/04/[address] [facility] Laboratory Services [address] [place] [address] Donald Pate MD [address] [place] [address] Anemia, unspecified Social History Tobacco Use Types Packs/Day Years Used Date Smoking Tobacco: Never Smokeless Tobacco: Never Alcohol Use Standard Drinks/Week Comments No 0 (1 standard drink = 0.6 oz pur e alcohol) [facility] Utilities Answer Date Recorded In the past 12 months has [employer], gas, oil, or water [employer] threatened to shut off services in your home? Patient declined 09/26/2024 Social Connection and Isolation Panel Answer Date Recorded In a typical week, how many times do you talk on the phone with family, friends, or neighbors? Patient declined 09/26/2024 How often do you get togethe r with friends or relatives? Patient declined 09/26/2024 How often do you attend jain or judaism serv ices? Patient declined 09/26/2024 Do you belong to any clubs o r organizations such as jain groups, unions, fraternal or athletic groups, or school groups? Patient declined 09/26/2024 How often do you attend meet ings of the clubs or organizations you belong to? Patient declined 09/26/2024 Are you , , di vorced, , never , or living with a partner? Patient declined 09/26/2024 AUDIT-C Answer Date Recorded Q1: How often do you have a drink containing alc ohol? Patient declined 09/26/2024 Q2: How many drinks containi ng alcohol do you have on a typical day when you are drinking? Patient declined 09/26/2024 Q3: How often do you have si x or more drinks on one occasion? Patient declined 09/26/2024 Overall Financial Resource Strain (CARDIA) Answe r Date Recorded How hard is it for you to pa y for the very basics like food, housing, medical care, and heating? Patient declined 09/26/2024 [facility] - Occupational Stress Questionnaire Answer Date Recorded Do you feel stress - tense, restless, nervous, or anxious, or unable to sleep at night because your mind is troubled all the time - these days? Patient declined 09/26/2024 Exercise Vital Sign Answer Date Recorde d On average, how many days pe r week do you engage in moderate to strenuous exercise (like a brisk walk)? Patient declined On average, how many minutes do you engage in exercise at this level? Patient declined 09/26/2024 Hunger Vital Sign Answer Date Recorded Within [...] appointments or from getting medications? Patient declined 09/26/2024 In the past 12 months, has l ack of transportation kept you from meetings, work, or from getting things needed for daily living? Patient declined 09/26/2024 Housing Stability Vital Sign Answer Patrice e Recorded In the last 12 months, was t here a time when you were not able to pay the mortgage or rent on time? Patient declined 09/26/19 25 In the past 12 months, how m any times have you moved where you were living? 1 09/26/2024 At any time in the past 12 m [facility], were you homeless or living in a chcf (including now)? Patient declined 09/26/2024 Sexually Active Control Partners Comments Not Currently Comments No Sex and Gender Information Value Date Recorded Sex Assigned at Not on file Legal Sex Female 12:10 AM CDT Gender Identity Not on file Sexual Orientation Not on file documented as of this encounter Plan of Treatment Upcoming Encounters Date Type Department Care Team (Late st Contact Info) Description 04/10/2025 3:00 PM CDT Office Visit [facility] [place] [address]2 [place] [address] Kimber Mojica APRN, MASTER NAVAL PARACHUTIST [address] [place] [address] documented as of this encounter Procedures Procedure Name Priority Date/Time Associated Diagnosis Comments CBC WITH AUTO DIFFERENTIAL Routine 10/04/2024 9:50 AM OPTICAL ELEMENT COATER Anemia, unspecified COMPLETE BLOOD COUNT (CBC) WITH DIFF Routine 10/04/2024 9:50 AM OPTICAL ELEMENT COATER Anemia, unspecified BASIC METABOLIC PANEL W/ CALCIUM TOTAL Routine 10/04/2024 9:50 AM OPTICAL ELEMENT COATER Anemia, unspecified documented in this encounter Results * (ABNORMAL) CBC WITH AUTO DIFFERENTIAL (10/04/2024 9:50 AM OPTICAL ELEMENT COATER) WBC 7.33 4.00 - 12.00 10(3)/mcL 10/04/2024 10:24 AM OPTICAL ELEMENT COATER [facility] RBC 3.74(L) 3.80 - 5.30 10(6)/mcL 10/04/2024 10:24 AM OPTICAL ELEMENT COATER [facility] HEMOGLOBIN (HGB) 8.8(L) 12.0 - 15.8 g/dL 10/04/2024 10:24 AM [facility] HEMATOCRIT (HCT) 28.9(L) 36.0 - 47.0 % 10/04/2024 10:24 AM [facility] MCV 77.3(L) 82.0 - 96.0 fL 10/04/2024 10:24 AM [facility] MCH 23.5(L) 26.0 - 34.0 pg 10/04/2024 10:24 AM [facility] MCHC 30.4(L) 31.0 - 36.0 g/dL 10/04/2024 10:24 AM [facility] PLATELET COUNT 330 140 - 440 10(3)/[facility] 10/04/2024 10:24 AM [facility] RDW 17.1(H) 11.8 - 15.5 % 10/04/2024 10:24 AM [facility] MPV 8.7(L) 9.7 - 12.4 fL 10/04/2024 10:24 AM [facility] NEUTROPHILS 75.6(H) 47.0 - 73.0 % 10/04/2024 10:24 AM [facility] LYMPHOCYTES 11.7(L) 18.0 - 42.0 % 10/04/2024 10:24 AM [facility] MONOCYTES 6.8 4.0 - 12.0 % 10/04/2024 10:24 AM [facility] EOSINOPHILS 4.9 0.0 - 5.0 % 10/04/2024 10:24 AM [facility] BASOPHILS 1.0 0.0 - 1.0 % 10/04/2024 10:24 AM [facility] ABSOLUTE NEUTROPHILS 5.54 1.60 - 7.70 10(3)/mcL 10/04/2024 10:24 AM [facility] ABSOLUTE LYMPHOCYTES 0.86(L) 1.30 - 3.20 10(3)/[facility] 10/04/2024 10:24 AM [facility] ABSOLUTE MONOCYTES 0.50 0.20 - 1.00 10(3)/[facility] 10/04/2024 10:24 AM OPTICAL ELEMENT COATER [facility] ABSOLUTE EOSINOPHIL 0.36 0.00 - 0.40 10(3)/[facility] 10/04/2024 10:24 AM OPTICAL ELEMENT COATER [facility] ABSOLUTE BASOPHILS 0.07 0.00 - 0.10 10(3)/[facility] 10/04/2024 10:24 AM [facility] NRBC PER 100 WBC 0 10/04/19 10:24 AM [facility] Blood No Phlebotomy Charged / Unknown 10/04/2024 9:50 AM [facility] 10/04/2024 10:22 AM [facility] us Donald Pate MD HEMATOLOGY ORDERABLES Alisia l Result [facility] #1 [place] [address] * (ABNORMAL) BASIC METABOLIC PANEL W/ CALCIUM TOTAL (10/04/2024 9:50 AM OPTICAL ELEMENT COATER) SODIUM 145 136 - 145 mmol/L 10/04/2024 10:42 AM [facility] POTASSIUM 3.9 3.5 - 5.1 mmol/L 10/04/2024 10:42 AM [facility] CHLORIDE 111(H) 98 - 107 mmol/L 10/04/2024 10:42 AM [facility] CO2, VENOUS 22 22 - 30 mmol/L 10/04/2024 10:42 AM [facility] ANION GAP 15.9 <18.0 mmol/L 10/04/2024 10:42 AM [facility] GLUCOSE 85 70 - 99 mg/dL 10/04/2024 10:42 AM [facility] BUN 31(H) 10 - 20 mg/dL 10/04/2024 10:42 AM [facility] CREATININE, BLOOD 2.15(H) 0.60 - 1.00 mg/dL 10/04/2024 10:42 AM OPTICAL ELEMENT COATER [facility] BUN/CREATININE RATIO 14 12 - 20 ratio 10/04/2024 10:42 AM OPTICAL ELEMENT COATER [facility] CALCIUM 9.2 8.7 - 10.5 mg/dL 10/04/2024 10:42 AM OPTICAL ELEMENT COATER [facility] GFR, ESTIMATED 25(L) >=60 10/04/2024 10:42 AM OPTICAL ELEMENT COATER [facility] Comment: Creatinine Clearance is the preferred criteria for selecting drug dose adjustments in renally impaired patients. The GFR is provided as additional pertinent clinical information. GFR is reported in mL/min/1.73 sq m. Calculation based on the Chronic Kidney Disease Epidemiology Collaboration (CKD- EPI) equation refit without adjustment for race. GFR, EST. 28(L) >=60 025 10:42 AM OPTICAL ELEMENT COATER [facility] GFR, EST. NONAFRICAN 23(L) >=60 10/04/2024 10:42 AM OPTICAL ELEMENT COATER [facility] Blood No Phlebotomy Charged / Unknown 10/04/2024 9:50 AM OPTICAL ELEMENT COATER 10/04/2024 10:22 AM OPTICAL ELEMENT COATER us Donald Pate MD CHEMISTRY ORDERABLES Final Result [facility] [address] [place] [place] [address] documented in this encounter Visit Diagnoses Diagnosis Anemia, unspecified documented in this encounter Care Teams Clinical Asst Relationship Specialty Start Date End Date Donald Pate MD [address] [place] [place] [address] PCP - General Internal Medicine 02/04/18 documented as of this encounter
--- OUTSIDE RECORDS SUMMARY | 2025-04-06 13:44 | XMS_ITS | Encounter Summary ---
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 Gender Identity Not on file Sexual Orientation Not on file documented as of this encounter Miscellaneous Notes * Telephone Encounter - Lynn Richard - 04/06/2025 8:12 AM CDT Parking placard scanned into the chart * Telephone Encounter - Ese Hinkle LPN - 04/05/2025 1:03 PM CDT Pt inquiring about parking placard form she had dropped off to be filled out in January * Telephone Encounter - Ese Hinkle LPN - 04/05/2025 1:02 PM CDT Spoke with pt re: eye exam overdue and she said she knows she needs one but doesn't have the money at this time but will get it done when she can .Pt usually goes to [facility] documented in this encounter Plan of Treatment Not on file documented as of this encounter Visit Diagnoses Not on filedocumented in this encounter Care Teams Manager Entry Relationship Specialty Start Date End Date Donald Pate MD [address] [place] [address] PCP - General 11/27/16 documented as of this encounter
--- OUTSIDE RECORDS SUMMARY | 2025-04-06 13:44 | XMS_ITS | Encounter Summary ---
Author Organization [facility] Healthcare Address [address] [place] [address] Care Team Providers Care Assault Boat Coxswain Name Role Phone Donald Pate MD Primary Care Provider +1- [phone] Encounter Details Date Type Department Care Team (Late st Contact Info) Description 09/27/2024 Orders Only [facility] [address] [place] [phone] Scanning, Provider Social History Tobacco Use Types [...] on file Legal Sex Female 11:58 PM MAINTENANCE MECHANIC ELEVATORS Gender Identity Not on file Sexual Orientation Not on file documented as of this encounter Plan of Treatment Not on file documented as of this encounter Procedures Procedure Name Priority Date/Time Associated Diagnosis Comments GI - RESULT 09/27/2024 documented in this encounter Results * GI - RESULT (09/27/2024) Anatomical Region Laterality Modality Other us Provider Scanning Final Result documented in this encounter Visit Diagnoses Not on filedocumented in this encounter Care Teams Assault Boat Coxswain Relationship Specialty Start Date End Date Donald Pate MD [address] [place] [address] PCP - General 11/27/16 documented as of this encounter
--- OUTSIDE RECORDS SUMMARY | 2025-04-06 13:44 | XMS_ITS | Encounter Summary ---
Author Organization [facility] Address [address] [place] [address] Phone Care Team Providers Care Ham Boner Name Role Phone Donald Pate MD Primary Care Provider +1- [phone] Encounter Details Date Type Department Care Team (Late st Contact Info) Description 10/06/2024 Lab Requisition [facility] Laboratory Services [address] [place] [address] Donald Pate MD [address] [place] [address] Anemia, unspecified Social History Tobacco Use Types Packs/Day Years Used Date Smoking Tobacco: Never Smokeless Tobacco: Never Alcohol Use Standard Drinks/Week Comments No 0 (1 standard drink = 0.6 oz pur e alcohol) [facility] Utilities Answer Date Recorded In the past 12 months has [employer], gas, oil, or water [employer] threatened to shut off services in your home? Patient declined 09/26/2024 Social Connection and Isolation Panel Answer Date Recorded In a typical week, how many times do you talk on the phone with family, friends, or neighbors? Patient declined 09/26/2024 How often do you get togethe r with friends or relatives? Patient declined 09/26/2024 How often do you attend catholic or tenriism serv ices? Patient declined 09/26/2024 Do you belong to any clubs o r organizations such as catholic groups, unions, fraternal or athletic groups, or [...] medical care, and heating? Patient declined 09/26/2024 [facility] - Occupational Stress [...] any time in the past [facility] or living in a [facility] (including now)? Patient declined 09/26/2024 Sexually Active [...] Visit [facility] [place] [address] [place] [address] Kimber Mojica APRN, BOOM MASTER [address] [place] [address] documented as of this encounter Procedures Procedure Name Priority Date/Time Associated Diagnosis Comments CBC WITH AUTO DIFFERENTIAL Routine 10/06/2024 10:15 AM HEALTH SOCIAL WORK PROFESSOR Anemia, unspecified COMPLETE BLOOD COUNT (CBC) WITH DIFF Routine 10/06/2024 10:15 AM HEALTH SOCIAL WORK PROFESSOR Anemia, unspecified BASIC METABOLIC PANEL W/ CALCIUM TOTAL Routine 10/06/2024 10:15 AM HEALTH SOCIAL WORK PROFESSOR Anemia, unspecified documented in this encounter Results * (ABNORMAL) CBC WITH AUTO DIFFERENTIAL (10/06/2024 10:15 AM HEALTH SOCIAL WORK PROFESSOR) WBC 8.20 4.00 - 12.00 10(3)/mcL 10/06/2024 1:09 PM HEALTH SOCIAL WORK PROFESSOR [facility] RBC 4.10 3.80 - 5.30 10(6)/mcL 10/06/2024 1:09 PM HEALTH SOCIAL WORK PROFESSOR [facility] HEMOGLOBIN (HGB) 9.7(L) 12.0 - 15.8 g/dL 10/06/2024 1:09 PM [facility] HEMATOCRIT (HCT) 31.5(L) 36.0 - 47.0 % 10/06/2024 1:09 PM [facility] MCV 76.8(L) 82.0 - 96.0 fL 10/06/2024 1:09 PM [facility] MCH 23.7(L) 26.0 - 34.0 pg 10/06/2024 1:09 PM [facility] MCHC 30.8(L) 31.0 - 36.0 g/dL 10/06/2024 1:09 PM [facility] PLATELET COUNT 385 140 - 440 10(3)/mcL 10/06/2024 1:09 PM [facility] RDW 17.1(H) 11.8 - 15.5 % 10/06/2024 1:09 PM [facility] MPV 9.1(L) 9.7 - 12.4 fL 10/06/2024 1:09 PM [facility] NEUTROPHILS 78.4(H) 47.0 - 73.0 % 10/06/2024 1:09 PM [facility] LYMPHOCYTES 11.0(L) 18.0 - 42.0 % 10/06/2024 1:09 PM [facility] MONOCYTES 6.1 4.0 - 12.0 % 10/06/2024 1:09 PM [facility] EOSINOPHILS 3.3 0.0 - 5.0 % 10/06/2024 1:09 PM [facility] BASOPHILS 1.2(H) 0.0 - 1.0 % 10/06/2024 1:09 PM [facility] ABSOLUTE NEUTROPHILS 6.43 1.60 - 7.70 10(3)/mcL 10/06/2024 1:09 PM [facility] ABSOLUTE LYMPHOCYTES 0.90(L) 1.30 - 3.20 10(3)/mcL 10/06/2024 1:09 PM [facility] ABSOLUTE MONOCYTES 0.50 0.20 - 1.00 10(3)/mcL 10/06/2024 1:09 PM HEALTH SOCIAL WORK PROFESSOR [facility] ABSOLUTE EOSINOPHIL 0.27 0.00 - 0.40 10(3)/mcL 10/06/2024 1:09 PM HEALTH SOCIAL WORK PROFESSOR [facility] ABSOLUTE BASOPHILS 0.10 0.00 - 0.10 10(3)/mcL 10/06/2024 1:09 PM [facility] NRBC PER 100 WBC 0 10/06/19 25 1:09 PM [facility] Blood No Phlebotomy Charged / Unknown 10/06/2024 10:15 AM HEALTH SOCIAL WORK PROFESSOR 10/06/2024 12:59 PM HEALTH SOCIAL WORK PROFESSOR us Donald Pate MD HEMATOLOGY ORDERABLES Alisia l Result [facility] #1 [place] [address] * (ABNORMAL) BASIC METABOLIC PANEL W/ CALCIUM TOTAL (10/06/2024 10:15 AM HEALTH SOCIAL WORK PROFESSOR) SODIUM 142 136 - 145 mmol/L 10/06/2024 1:29 PM [facility] POTASSIUM 4.1 3.5 - 5.1 mmol/L 10/06/2024 1:29 PM [facility] CHLORIDE 109(H) 98 - 107 mmol/L 10/06/2024 1:29 PM [facility] CO2, VENOUS 22 22 - 30 mmol/L 10/06/2024 1:29 PM [facility] ANION GAP 15.1 <18.0 mmol/L 10/06/2024 1:29 PM [facility] GLUCOSE 113(H) 70 - 99 mg/dL 10/06/2024 1:29 PM [facility] BUN 23(H) 10 - 20 mg/dL 10/06/2024 1:29 PM [facility] CREATININE, BLOOD 1.78(H) 0.60 - 1.00 mg/dL 10/06/2024 1:29 PM HEALTH SOCIAL WORK PROFESSOR [facility] BUN/CREATININE RATIO 13 12 - 20 ratio 10/06/2024 1:29 PM HEALTH SOCIAL WORK PROFESSOR [facility] CALCIUM 9.7 8.7 - 10.5 mg/dL 10/06/2024 1:29 PM HEALTH SOCIAL WORK PROFESSOR [facility] GFR, ESTIMATED 31(L) >=60 10/06/2024 1:29 PM HEALTH SOCIAL WORK PROFESSOR [facility] Comment: Creatinine Clearance is the preferred criteria for selecting drug dose adjustments in renally impaired patients. The GFR is provided as additional pertinent clinical information. GFR is reported in mL/min/1.73 sq m. Calculation based on the Chronic Kidney Disease Epidemiology Collaboration (CKD- EPI) equation refit without adjustment for race. GFR, EST. 35(L) >=60 025 1:29 PM HEALTH SOCIAL WORK PROFESSOR [facility] GFR, EST. NONAFRICAN 29(L) >=60 10/06/2024 1:29 PM HEALTH SOCIAL WORK PROFESSOR [facility] Blood No Phlebotomy Charged / Unknown 10/06/2024 10:15 AM HEALTH SOCIAL WORK PROFESSOR 10/06/2024 12:59 PM HEALTH SOCIAL WORK PROFESSOR us Donald Pate MD CHEMISTRY ORDERABLES Final Result [facility] [place] [address] [place] [address] documented in this encounter Visit Diagnoses Diagnosis Anemia, unspecified documented in this encounter Care Teams Ham Boner Relationship Specialty Start Date End Date Donald Pate MD [address] [place] [id number] PCP - General Internal Medicine 02/04/18 documented as of this encounter
--- OUTSIDE RECORDS SUMMARY | 2025-04-06 13:44 | XMS_ITS | Encounter Summary ---
Author Organization [facility] Healthcare Address [address] [place] [address] Care Team Providers Care Legal Department Manager Name Role Phone Donald Pate MD Primary Care Provider +1- [phone] Encounter Details Date Type Department Care Team (Late st Contact Info) Description 02/28/2025 Results Follow-Up [facility] Medical Group [facility] [address] [place] [address] Donald Pate MD [address] [facility] [address] [place] [address] Iron profile w/ IBC, CBC with auto differential, Differential, auto Social History Tobacco Use Types Packs/Day Years [...] on file Legal Sex Female 11:58 PM SEARCH ENGINE OPTIMIZATION SPECIALIST Gender Identity Not on file Sexual Orientation Not on file documented as of this encounter Miscellaneous Notes * Telephone Encounter - Ar Navarrete, RN - 02/28/2025 8:53 AM CDT Printed et placed on TLQ desk for review documented in this encounter Plan of Treatment Not on file documented as of this encounter Visit Diagnoses Not on filedocumented in this encounter Care Teams Legal Department Manager Relationship Specialty Start Date End Date Donald Pate MD [address] [place] [address] PCP - General 11/27/16 documented as of this encounter
--- OUTSIDE RECORDS SUMMARY | 2025-04-06 13:44 | XMS_ITS | Encounter Summary ---
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 Gender Identity Not on file Sexual Orientation Not on file documented as of this encounter Plan of Treatment Not on file documented as of this encounter Procedures Procedure Name Priority Date/Time Associated Diagnosis Comments GI - RESULT 08/16/2024 documented in this encounter Results * GI - RESULT (08/16/2024) Anatomical Region Laterality Modality Other us Provider Scanning Final Result documented in this encounter Visit Diagnoses Not on filedocumented in this encounter Care Teams Vegetable Grader Relationship Specialty Start Date End Date Donald Pate MD [address] [place] [address] PCP - General 11/27/16 documented as of this encounter
--- OUTSIDE RECORDS SUMMARY | 2025-04-06 13:44 | XMS_ITS | Clinical Summary ---
Author Organization [facility] Address [facility] [place] [address] Care Team Providers Care Attending Anesthesiologist Name Role Phone Unknown, Provider Primary Care Provider Unavaila ble Source Comments [facility],non-owned Affiliates and Associated Physician Practices is amultiple site organization consisting of ambulatory clinics and hospital sitesin [place], [place], [place] and [place]. This disclosure is being madepursuant to the Care Everywhere program and may not contain all information available regarding this patient. Last updated 18.[facility] Allergies No known active allergies Medications * Be aware that medications may not be up to date on this document. Alwaysverify current medications with the patient. levothyroxine (SYNTHROID) 25 MCG tablet Take 25 mcg by mouth daily before breakfast. Active simvastatin (ZOCOR) 20 MG tablet Take 20 mg by mouth at bedtime. Active triamterene-hydr ochlorothiazide (DYAZIDE) 37.5-25 MG capsule Take 1 Cap by mouth once daily. Active MECLIZINE HCL PO Take 2 Tabs by mouth as needed. Active support hose knee high extra firm compression (JOBST) support hose Apply 1 Each to affected area as directed. 2 Each 2 3 Active Active Problems Problem Noted Date Diagnosed Date Obesity 10/09/2009 Social History Tobacco Use Types Packs/Day Years Used Date Smoking Tobacco: Never Alcohol Use Standard Drinks/Week Comments No 0 (1 standard drink = 0.6 oz pur e alcohol) occasional Comments No Sex and Gender Information Value Date Recorded Sex Assigned at Not on file Legal Sex Female 8:23 AM [employer] Gender Identity Not on file Sexual Orientation Not on file Last Filed Vital Signs Vital Sign Reading Time Taken Comments Blood Pressure 129/71 02/24/2013 11:09 AM CDT Pulse 69 02/24/2013 11:12 AM CDT Temperature 36.4 C (97.5 F) 10/09/2009 11:32 AM [employer] Respiratory Rate 20 02/24/2013 11:12 AM CDT Oxygen Saturation 98% 02/24/2013 11:12 AM CDT Inhaled Oxygen Concentration - - Weight 120.2 kg (265 lb) 02/24/2013 9:29 AM CDT Height 160 cm (5' 3) 02/24/2013 9:29 AM CDT Body Mass Index 46.94 02/24/2013 9:29 AM CDT Plan of Treatment Health Maintenance Due Date Last Done Comments BONE DENSITY TESTING 1959 COLOGUARD (AGES 45-75) - COL ON CA SCREENING 1959 COLON MONITORING 1959 COLONOSCOPY - COLON CA SCREENING 1959 CT COLONOGRAPHY - COLON CA SCREENING 1959 Colorectal Cancer Screening 1959 FIT - COLON CA SCREENING 1959 FLEX SIG - COLON CA SCREENING 1959 MAMMOGRAM 1959 MEDICARE AWV 12 MONTHS 1959 HEPATITIS C SCREENING 01/23/1977 DTAP/TDAP/TD VACCINES (1 - Tdap) 1978 PNEUMOCOCCAL VACCINE 50+ (1 of 1 - PCV) 2009 ZOSTER VACCINE (1 of 2) 2009 Respiratory Syncytial Virus (RSV) Vaccine Pt: or over 60 yrs (1 - Risk 60-74 years 1-dose series) 2019 COVID-19 VACCINE (1 - 2023-2 5 season) 2024 DEPRESSION SCREENING 08/30/2024 INFLUENZA VACCINE (#1) 2025 HEPATITIS B VACCINE Aged Out No longe r eligible based on patient's age to complete this topic HIB VACCINE Aged Out No longer eligi ble based on patient's age to complete this topic HPV VACCINE Aged Out No longer eligi ble based on patient's age to complete this topic MENINGOCOCCAL (Group B) VACC INE SHARED DECISION-MAKING Aged Out No longer eligibl e based on patient's age to complete this topic MENINGOCOCCAL GROUPS A/C/Y/W VACCINE Aged Out No longer eligible b ased on patient's age to complete this topic Insurance MEDICARE [facility] Care Teams Attending Anesthesiologist Relationship Specialty Start Date End Date Unknown, Provider PCP - General 02/21/18
[2025-04-06 13:48] VITALS: BP 138/75; PULSE 80; RESP 16; TEMP 36.6; O2SAT 100
--- NOTE | 2025-04-06 14:03 | ED_ITS ---
HPI - URI/Sore Throat General Chief Complaint: Upper Respiratory Infection Stated Complaint: Ear Pain/Headache Time Seen by Provider: 04/06/25 14:03 Source: patient Mode of arrival: ambulatory Limitations: no limitations History of Present Illness HPI Narrative: 65-year-old male presents with complaint of headache, bilateral ear pain and postnasal drainage for 4-5 days. Afebrile. No other symptoms. All systems reviewed and negative except as noted above. Related Data Home Medications ?Medication ?Instructions ?Recorded ?Confirmed ?Last Taken ?Type amitriptyline 10 mg tablet 10 mg PO HS 08/27/21 04/06/25 Unknown History simvastatin 20 mg tablet 20 mg PO DAILY 08/27/21 04/06/25 Unknown History tramadol 50 mg tablet 50 mg PO Q6H PRN Pain (Scale Score 08/27/21 04/06/25 Unknown History 4-6) triamterene 37.5 1 cap PO DAILY 08/27/21 04/06/25 Unknown History mg-hydrochlorothiazide 25 mg capsule amlodipine 5 mg tablet 5 mg PO DAILY 03/25/24 04/06/25 Unknown History glimepiride 2 mg tablet See Rx Instructions .Route .COMPLEX 03/25/24 04/06/25 Unknown History levothyroxine 125 mcg tablet 125 mcg PO DAILY 03/25/24 04/06/25 Unknown History metformin 500 mg tablet 500 mg PO BID 03/25/24 04/06/25 Unknown History pantoprazole 40 mg tablet,delayed mg PO 04/06/25 Unknown History release prednisone 10 mg tablet mg 04/06/25 Unknown History triamterene 37.5 tablet 04/06/25 Unknown History mg-hydrochlorothiazide 25 mg tablet Allergies Allergy/AdvReac Type Severity Reaction Status Date / Time No Known Allergies Allergy Verified 04/06/25 13:44 [facility] Past Medical History Medical History (Updated 04/06/25 @ 14:06 by Katie Hylton NP) Cancer of thyroid Depression Diabetes Hypothyroidism Hyperlipidemia Hypertension Surgical History Surgical History (Updated 03/27/24 @ 08:28 by Tila Patricia NP) History of endometrial ablation H/O tubal ligation Hx of appendectomy H/O thyroidectomy Hx of cholecystectomy Social History Social History (Updated 03/27/24 @ 08:29 by Tila L. Harshad, STRE[employer] DISPATCHER) Smoking status: Never smoker Alcohol intake: current Alcohol use details: rare social Substance use: never Gender identity (if verbalized by the patient): Female Comments At time of signature, agree with nursing past medical, surgical, social and family history. There is no relevant family history pertinent to the presenting complaint. Exam Narrative: GENERAL: This is a well-nourished, well-developed patient, in no apparent distress. HEAD: normocephalic, atraumatic. EYES: PERRL. Sclera clear/white. Vision is grossly intact. EARS: External ears normal, auditory canals clear and without drainage, Fluid bilateral TMs, dull light reflex with mild erythema. No bulging or perforation bilaterally. Hearing grossly intact. NOSE: External nose normal with no obvious nasal discharge, nares without redness, no rhinorrhea. THROAT: Mucous membranes moist, Postnasal drainage with out significant erythema, swelling or exudates NECK: Neck supple, non-tender without lymphadenopathy, masses or thyromegaly. CARDIOVASCULAR: Regular rate and rhythm without murmurs, gallops, or rubs. RESPIRATORY: Clear to auscultation. Breath sounds equal bilaterally. No wheezes, rales, or rhonchi. SKIN: warm, Dry, intact with no suspicious lesions or rash, good texture and turgor. NEURO: awake, alert, and oriented to person, place and time. Course Course Level of Care: Express Care Visit Vital Signs Vital signs: Vital Signs Temperature 36.6 C 04/06/25 13:48 Pulse Rate 80 04/06/25 13:48 Respiratory Rate 16 04/06/25 13:48 Blood Pressure 138/75 04/06/25 13:48 Pulse Oximetry 100 04/06/25 13:48 Oxygen Delivery Room Air 04/06/25 13:48 Temperature 36.6 C 04/06/25 13:48 Pulse Rate 80 04/06/25 13:48 Respiratory Rate 16 04/06/25 13:48 Blood Pressure 138/75 04/06/25 13:48 Pulse Oximetry 100 04/06/25 13:48 Oxygen Delivery Room Air 04/06/25 13:48 reviewed MDM - URI/Sore Throat MDM Narrative Medical decision making narrative: will treat bilateral serous otitis media with amoxicillin. Patient agrees with plan of care. Differential Diagnosis Differential diagnosis: Likely upper respiratory infection, otitis media, sinusitis and viral infection Discharge Plan Discharge Clinical Impression: Acute serous otitis media of both ears Patient Disposition: Home Condition: Stable Instructions: Antibiotic Form, Fluid In The Ear (Serous Otitis Media) (ED) Additional Instructions: take antibiotic as prescribed. Take an [id number] antihistamine such as Claritin or Zyrtec. See your doctor if your pain is not improving. Patient Language: Guamanian Prescriptions: New amoxicillin 875 mg tablet 875 mg PO Q12H 10 Days Qty: 20 0RF No Action amlodipine 5 mg tablet 5 mg PO DAILY glimepiride 2 mg tablet See Rx Instructions .ROUTE .COMPLEX Rx Instructions: as prescribed levothyroxine 125 mcg tablet 125 mcg PO DAILY metformin 500 mg tablet 500 mg PO BID mupirocin 2 % ointment 1 applic topical BID Qty: 22 0RF tramadol 50 mg Tablet 50 mg PO Q6H PRN (Reason: Pain (Scale Score 4-6)) simvastatin 20 mg Tablet 20 mg PO DAILY triamterene-hydrochlorothiazid 37.5-25 mg Capsule 1 cap PO DAILY amitriptyline 10 mg Tablet 10 mg PO HS prednisone 10 mg tablet pantoprazole 40 mg tablet,delayed release (DR/EC) PO triamterene-hydrochlorothiazid 37.5-25 mg tablet Follow-up/Referrals: Rio,MD Donald [Primary Care Provider] - Time of Disposition: 14:06
== END 2025-04-06 14:08 | disposition home or self-care (01) ==
PROVIDERS: Emergency Provider Nurse Practitioner Family; PCP Internal Medicine Infectious Disease
DX: H65.03 Acute serous otitis media, bilateral (principal); I10 Essential (primary) hypertension; E78.5 Hyperlipidemia, unspecified; E89.0 Postprocedural hypothyroidism; E11.9 Type 2 diabetes mellitus without complications; Z79.84 Long term (current) use of oral hypoglycemic drugs; Z85.850 Personal history of malignant neoplasm of thyroid; F32.A Depression, unspecified
CPT/HCPCS: 99213; G0463